=== PATIENT | female | born 1960 | race Caucasian/White ===

== ENCOUNTER 2019-07-11 14:09 | Emergency (ER) | payer OTHER, SELFPAY ==
--- NOTE | ~2019-07-11 | US_ITS ---
EXAMINATION:US venous doppler LE LT INDICATION:Flank pain TECHNIQUE: Multiple grayscale, color flow and Doppler images of the left lower extremity deep venous systems were obtained and reviewed. COMPARISON:No prior studies for comparison. FINDINGS: The common femoral, superficial femoral and popliteal veins demonstrate normal respiratory variation, augmentation and compressibility. Color flow is also seen within the posterior tibial, pe roneal, greater saphenous and profunda veins. IMPRESSION: 1: No lower extremity deep venous thrombosis. Reviewed, dictated and finalized at location A.
[2019-07-11 14:11] VITALS: BP 178/84; PULSE 76; RESP 18; TEMP 36.2; O2SAT 100
--- NOTE | 2019-07-11 14:40 | ED.GENADULT ---
HPI - General Adult General Chief complaint: Extremity Injury, Lower Stated complaint: left leg pain Time Seen by Provider: 07/11/19 14:11 Source: patient Mode of arrival: ambulatory Limitations: no limitations History of Present Illness HPI narrative: Patient is a 58-year-old female who presents to emergency department for evaluation of left leg pain noting pain to the left calf just below the knee for the last day presents for advice of her primary care doctor to rule out DVT patient on arrival notes aching pain worse with weightbearing and activity patient denies any injury or trauma. Patient denies similar occurrence in the past presents per private vehicle has not taken anything for her symptoms Related Data Home Medications Medication Instructions Recorded Confirmed atorvastatin 40 mg PO HS 07/11/19 diclofenac sodium [Voltaren] 1 % TOPICAL 07/11/19 levothyroxine 150 mcg PO DAILY 07/11/19 losartan 25 mg PO DAILY 07/11/19 metformin 1,000 mg PO BID 07/11/19 Allergies Allergy/AdvReac Type Severity Reaction Status Date / Time codeine Allergy Mild knocks pt Verified 07/11/19 14:17 out penicillin G Allergy Mild hives Verified 07/11/19 14:17 Sulfa (Sulfonamide Allergy Mild hives Verified 07/11/19 14:17 Antibiotics) z-pac Allergy Mild stomach Uncoded 07/11/19 14:17 cramps Review of Systems Review of Systems: All systems reviewed & are unremarkable except as noted in HPI and below PMFSH Past Medical History Medical History (Updated 07/11/19 @ 15:16 by Kashif Hicks PA-C) Diabetes mellitus Social History Social History (Updated 07/11/19 @ 14:42 by Kashif Hicks PA-C) Smoking status: Never smoker Exam Narrative: Exam Narrative: GENERAL: Well-appearing, well-nourished, and in no acute distress. HEAD: Normocephalic, atraumatic. EYES: PERRLA and EOMI. ENT: Nares clear, no rhinorrhea or epistaxis. Mucous membranes moist. CHEST: Clear to auscultation. No respiratory distress. No wheezes rales or rhonchi HEART: Regular rate and rhythm. No murmur heard. Normal peripheral pulses. EXTREMITIES: Normal range of motion. No edema. Tenderness of the left leg just below the knee posteriorly no deformities noted SKIN: Warm, dry, no rash. NEURO: No focal deficits. Alert and oriented x3. PSYCH: Normal mood and affect. Course Course Emergency Course: Patient in the room in no distress aware of case findings treatment plan and diagnosis agreeing to follow-up as directed Vital Signs Vital signs: Vital Signs Temperature 97.2 F L 07/11/19 14:11 Pulse Rate 76 07/11/19 14:11 Respiratory Rate 18 07/11/19 14:11 Blood Pressure 178/84 H 07/11/19 14:11 Pulse Oximetry 100 07/11/19 14:11 Temperature 97.2 F L 07/11/19 14:11 Pulse Rate 76 07/11/19 14:11 Respiratory Rate 18 07/11/19 14:11 Blood Pressure 178/84 H 07/11/19 14:11 Pulse Oximetry 100 07/11/19 14:11 Medical Decision Making MDM Narrative Medical decision making narrative: Patients injury or pain is consistent with musculoskeletal etiology. No signs of neurological or vascular compromise on exam. Compartments and tisues are soft without signs of compartment syndrome. Pain is felt appropriate for further evaluation on an outpatient basis. Vital Signs Vital Signs: Vital Signs Temperature 97.2 F L 07/11/19 14:11 Pulse Rate 76 07/11/19 14:11 Respiratory Rate 18 07/11/19 14:11 Blood Pressure 178/84 H 07/11/19 14:11 Pulse Oximetry 100 07/11/19 14:11 Temperature 97.2 F L 07/11/19 14:11 Pulse Rate 76 07/11/19 14:11 Respiratory Rate 18 07/11/19 14:11 Blood Pressure 178/84 H 07/11/19 14:11 Pulse Oximetry 100 07/11/19 14:11 Imaging Data Radiologist's impression: ITS Impressions Venous Doppler Study 07/11/19 15:01 IMPRESSION: 1: No lower extremity deep venous thrombosis. Discharge Plan Discharge Clinical Impression: Left leg pain Patient Di
== END 2019-07-11 15:41 | disposition home or self-care (01) ==
LOC: ANHED 15:34
PROVIDERS: Emergency Provider Emergency Medicine
DX: M79.662 Pain in left lower leg (principal); E11.9 Type 2 diabetes mellitus without complications; Z79.84 Long term (current) use of oral hypoglycemic drugs
CPT/HCPCS: 93971; 99284

== ENCOUNTER 2022-02-27 17:23 | Emergency (ER) | payer BC, SELFPAY ==
--- NOTE | ~2022-02-27 | XR_ITS ---
EXAMINATION: XR knee RT 3V DATE: 02/27/2022 18:26 INDICATION: Right knee pain. TECHNIQUE: 3 views of right knee were obtained. COMPARISON: None. FINDINGS: Bone alignment is normal. No fracture. There is mild tricompartmental osteoarthritis. No kn ee joint effusion. IMPRESSION: 1. Mild right knee osteoarthritis. Reviewed, dictated and finalized at location A. E HANDLING TECHNICIAN
[2022-02-27 17:35] VITALS: BP 152/72; PULSE 60; RESP 16; TEMP 36.4; O2SAT 98
--- NOTE | 2022-02-27 18:05 | ED.GENADULT ---
HPI - General Adult General Chief complaint: Extremity Injury, Lower Stated complaint: rt knee injury Source: patient Mode of arrival: ambulatory Limitations: no limitations History of Present Illness HPI narrative: Patient presents for evaluation of right knee pain. She indicates approximately 6 months ago she experienced some pain in the anterolateral aspect of the right knee. She cannot identify any precipitating injury. She saw her primary provider told her that she probably strained something per her reports. Her pain did improve. Yesterday she was stretching in bed when she felt a pop in her right knee. She has noted persistent pain in the affected joint since that time. At rest sh she has a dull aching sensation rated 3/10 severity. With movement, weight-bearing and walking her pain increases to 8/10. She reports numbness in the affected area. She tried taking 600 mg of ibuprofen without considerable improvement in her symptoms or after. She is diabetic. Home BS are in 200-300's. Related Data Home Medications Medication Instructions Recorded Confirmed atorvastatin 40 mg tablet 40 mg PO HS 07/11/19 02/27/22 levothyroxine 150 mcg tablet 150 mcg PO DAILY 07/11/19 02/27/22 losartan 25 mg tablet 25 mg PO DAILY 07/11/19 02/27/22 metformin 1,000 mg tablet 1,000 mg PO BID 07/11/19 02/27/22 glipizide 10 mg tablet, extended 10 mg PO DIRECTED 02/27/22 02/27/22 release 24 hr insulin glargine-yfgn 100 unit/mL See Rx Instructions .Route .COMPLEX 02/27/22 02/27/22 (3 mL) subcutaneous pen Allergies Allergy/AdvReac Type Severity Reaction Status Date / Time codeine Allergy Mild knocks pt Verified 02/27/22 17:42 out penicillin G Allergy Mild hives Verified 02/27/22 17:42 Sulfa (Sulfonamide Allergy Mild hives Verified 02/27/22 17:42 Antibiotics) azithromycin Allergy Itching Verified 02/27/22 17:42 [From Zithromax Z-Sonny] Review of Systems Review of Systems: CONSTITUTIONAL: Denies fever, chills, or sweats. EYES: Denies visual changes, redness, or discharge. ENT: Denies rhinorrhea, congestion, sore throat, or otalgia. CARDIOVASCULAR: Denies chest pain, palpitations, or edema. RESPIRATORY: Denies cough or dyspnea. GASTROINTESTINAL: Denies abdominal pain, nausea, vomiting, or diarrhea. GENITOURINARY: Denies dysuria or hematuria. SKIN: Denies rash or itching. MUSCULOSKELETAL: Reports right knee pain. Denies joint pain otherwise. NEUROLOGIC: Denies headache, numbness, dizziness, or weakness. PSYCHIATRIC: Denies anxiety or depression. [facility] Past Medical History Medical History (Updated 02/27/22 @ 18:43 by SHERIF Garcia, ) Diabetes mellitus History of esophageal dilatation Hyperlipidemia Hypertension Surgical History Surgical History History of cholecystectomy History of dilatation and curettage Family History Family History Mother Family history non-contributory Social History Social History Alcohol intake: current Alcohol use details: occasional Gender identity (if verbalized by the patient): Female Spiritual care concerns: No Exam Narrative: GENERAL: Well-appearing, well-nourished, and in no acute distress. HEAD: Normocephalic, atraumatic. EYES: PERRLA and EOMI. ENT: Nares clear, no rhinorrhea or epistaxis. Mucous membranes moist. Oropharynx without tonsillar hypertrophy exudate or other lesions. Bilateral TMs pearly ridley nonbulging NECK: Supple. No adenopathy or masses. No carotid bruits or JVD CHEST: Clear to auscultation. No respiratory distress. No wheezes rales or rhonchi HEART: Regular rate and rhythm. No murmur heard. Normal peripheral pulses. ABDOMEN: Soft, nontender, nondistended, normal active bowel sounds. EXTREMITIES: full range of motion of the right knee bu
[2022-02-27] MEDS: KETOROLAC (*BKC) 60 MG/2 ML VIAL IM (18:14)
== END 2022-02-27 18:51 | disposition home or self-care (01) ==
PROVIDERS: Emergency Provider Nurse Practitioner
DX: S86.911A Strain of unspecified muscle(s) and tendon(s) at lower leg level, right leg, initial encounter (principal); X50.9XXA Other and unspecified overexertion or strenuous movements or postures, initial encounter; E11.9 Type 2 diabetes mellitus without complications; E78.5 Hyperlipidemia, unspecified; I10 Essential (primary) hypertension
CPT/HCPCS: 73562; 96372; 99213; G0463; J1885

== ENCOUNTER 2022-06-03 14:01 | Emergency (ER) | payer BC, SELFPAY ==
--- NOTE | ~2022-06-03 | XR_ITS ---
EXAMINATION: XR hand RT min 3V INDICATION: Right hand pain TECHNIQUE: Three views of the right hand are obtained. COMPARISON: None available FINDINGS: Bone alignment is normal. There is no fracture. There is mild osteoarthritis of multiple in terphalangeal joints. IMPRESSION: 1. No acute osseous abnormality. Reviewed, dictated and finalized at location A.
--- NOTE | 2022-06-03 14:15 | ED.UPPEXIN ---
HPI - Extremity Injury (Upper) General Chief Complaint: Extremity Injury, Upper Stated Complaint: rt hand pain Time Seen by Provider: 06/03/22 14:04 Source: patient Mode of arrival: ambulatory Limitations: no limitations History of Present Illness HPI narrative: Patient is a 61 year old female that presents with right wrist/hand pain after fall 2 days ago. Patient fell on outstretched hand and has been having pain since. Patient reports bruising to area that keeps spreading causing her concern. Reports using ice, but has not taken anything for pain. Denies any weakness, numbness or tingling. Reports she is still able to move wrist and hand fully. Related Data Home Medications Medication Instructions Recorded Confirmed atorvastatin 40 mg tablet 40 mg PO HS 07/11/19 06/03/22 levothyroxine 150 mcg tablet 150 mcg PO DAILY 07/11/19 06/03/22 losartan 25 mg tablet 25 mg PO DAILY 07/11/19 06/03/22 metformin 1,000 mg tablet 1,000 mg PO BID 07/11/19 06/03/22 glipizide 10 mg tablet, extended 10 mg PO DIRECTED 02/27/22 06/03/22 release 24 hr insulin glargine-yfgn 100 unit/mL See Rx Instructions .Route .COMPLEX 02/27/22 06/03/22 (3 mL) subcutaneous pen Allergies Allergy/AdvReac Type Severity Reaction Status Date / Time codeine Allergy Mild knocks pt Verified 06/03/22 14:07 out penicillin G Allergy Mild hives Verified 06/03/22 14:07 Sulfa (Sulfonamide Allergy Mild hives Verified 06/03/22 14:07 Antibiotics) azithromycin Allergy Itching Verified 06/03/22 14:07 [From Zithromax Z-Sonny] Review of Systems Review of Systems: All systems reviewed & are unremarkable except as noted in HPI and below Constitutional: Constitutional: Denies body ache(s), Denies fever(s), Denies headache(s), Denies malaise and Denies weakness Eyes: Eyes: Denies loss of vision ENT: Denies otalgia, Denies headache(s), Denies nasal discharge, Denies sinus pain and Denies sore throat Cardiovascular: Cardiovascular: Denies chest pain, Denies irregular heart rhythm and Denies dyspnea Respiratory: Respiratory: Denies dyspnea Gastrointestinal: Gastrointestinal: Denies abdominal pain, Denies diarrhea, Denies nausea and Denies vomiting Musculoskeletal: Musculoskeletal: Denies back pain, Denies myalgias and Reports arthralgias Integumentary/Breasts: Skin/Breast: Denies pruritus and Denies rash Neurologic: Denies headache(s), Denies loss of vision and Denies weakness Psychiatric: Psychiatric: Reports no additional psychiatric complaints PMF Past Medical History Medical History (Updated 06/03/22 @ 14:33 by Tennille Lucas, TEXT TRANSCRIBER) Diabetes mellitus History of esophageal dilatation Hyperlipidemia Hypertension Surgical History Surgical History History of cholecystectomy History of dilatation and curettage Family History Family History Mother Family history non-contributory Social History Social History Alcohol intake: current Alcohol use details: occasional Gender identity (if verbalized by the patient): Female Spiritual care concerns: No Comments At time of signature, agree with nursing past medical, surgical, social and family history. There is no relevant family history pertinent to the presenting complaint. Exam Const: General: cooperative, healthy appearing, comfortable, no acute distress and well nourished Nutritional Appearance: well nourished Orientation/consciousness: patient oriented x3 Limitations: no limitations HENMT: Head: normal to inspection, normocephalic and atraumatic Ears: external ears normal Face/Nose/Sinus: Normal external nose present, normal facial exam and face symmetric Face and sinus: normal facial exam and face symmetric Mouth: Yes lip normal Eyes: General: appearance normal, both eyes and all related
[2022-06-03 14:19] VITALS: BP 134/77; PULSE 71; RESP 16; TEMP 36.6; O2SAT 99
== END 2022-06-03 14:37 | disposition home or self-care (01) ==
PROVIDERS: Emergency Provider Nurse Practitioner Family
DX: S63.501A Unspecified sprain of right wrist, initial encounter (principal); S66.911A Strain of unspecified muscle, fascia and tendon at wrist and hand level, right hand, initial encounter; W19.XXXA Unspecified fall, initial encounter; E11.9 Type 2 diabetes mellitus without complications; E78.5 Hyperlipidemia, unspecified; I10 Essential (primary) hypertension
CPT/HCPCS: 73130; 99213; G0463

== ENCOUNTER 2024-08-02 12:53 | Inpatient (IN) | payer OTHER, SELFPAY ==
[2024-08-02] VITALS (22 sets, daily range): BP systolic 120–192; BP diastolic 51–113; PULSE 58–74; RESP 11–26; TEMP 36.3–36.7; O2SAT 98–100; BMI 36.3
--- NOTE | ~2024-08-02 | CT_ITS ---
Non-contrast Head CT History: CVA Technique: Axial non-contrast imaging of the brain was performed. Dose reduction technique was used on this scan by utilizing automated exposure control and iterative reconstruction technique. The dose -length product (DLP) was 681.00 mGy-cm. Findings: There is no evidence of intracranial hemorrhage, mass lesion, or acute infarct. Brain par enchyma appears normal. The ventricles and subarachnoid spaces are normal in size. The calvarium ap pears normal. The visualized paranasal sinuses and mastoid air cells are clear. Impression: No significant abnormality seen. Case discussed with Dr. Ramos at 1:22 PM on 08/02/2024. Reviewed, dictated and finalized at location . Impression: No significant abnormality seen. Case discussed with Dr. Ramos at 1:22 PM on 08/02/2024.
--- NOTE | ~2024-08-02 | CT_ITS ---
CT ANGIOGRAM NECK AND HEAD History: CVA. Technique: Serial spiral axial images through the head and neck were obtained during arterial phase I V injection of 100 cc of Omnipaque 350. 3-D postprocessing and MIP images were then reconstructed on the remote workstation. Dose reduction technique was used on this scan by utilizing automated exposur e control and iterative reconstruction technique. The dose-length product (DLP) was 1152.04 mGy-cm. CTA neck findings: Bilateral vertebral arteries appear patent. Bilateral common carotid, internal ca rotid, and external carotid arteries are patent. No large vessel occlusion or stenosis. No aneurysm. The proximal right internal carotid artery demonstrates 0% stenosis relative to the normal distal art brooks lumen diameter. The proximal left internal carotid artery demonstrates 0% stenosis relative to th e normal distal artery lumen diameter. CTA head findings: Distal vertebral arteries, basilar artery, and posterior cerebral arteries are pat ent. Distal internal carotid arteries, middle cerebral arteries, and anterior cerebral arteries are p atent. No large vessel occlusion or stenosis. No aneurysm. Impression: No significant abnormality seen. Reviewed, dictated and finalized at location . Impression: No significant abnormality seen.
--- NOTE | ~2024-08-02 | XR_ITS ---
Portable chest x-ray Comparison: 07/20/2013 Clinical History: CVA Findings: Lungs are clear, without focal consolidation or pleural effusion. Cardiomediastinal silho uette is stable. Bones and soft tissues are unremarkable. Impression: Clear lungs. Reviewed, dictated and finalized at location . Impression: Clear lungs.
--- NOTE | ~2024-08-02 | MR_ITS ---
EXAMINATION: MR brain/brain stem wo/w con DATE: 08/03/2024 10:52 INDICATION: Stroke TECHNIQUE: Magnetic resonance imaging (MRI) of the brain and brainstem was performed without and with 20 mL Multihance intravenous contrast. Sequences included sagittal and axial T1-weighted SE, axial d iffusion-weighted FS SE, axial T2*-weighted GRE, axial T2-weighted FLAIR, and axial T2-weighted FSE. Postcontrast axial and coronal T1-weighted SE was obtained. Apparent diffusion coefficient (ADC) maps were created. COMPARISON: Head CT and CT angiogram dated 08/02/2024 FINDINGS: There are no areas of restricted diffusion to suggest acute infarction. No intracranial hemorrhage or abnormal intracranial mass lesion. There are scattered areas of nonspecific increased T2-weighted si gnal intensity in the cerebral white matter, predominantly involving the deep and periventricular whi te matter which is within normal limits for age and likely sequela of chronic small vessel ischemic d isease. There are no intraparenchymal signal abnormalities seen on the other pulse sequences. Symmetr ic prominence of the sulci and and subarachnoid spaces overlying the convexities consistent with mild age-appropriate diffuse cerebral volume loss. The ventricles are symmetric and normal in size. Ther e are no abnormal extra-axial fluid collections. Flow voids are seen in the cerebral arteries on the T2-weighted sequences consistent with their expected patency. Changes of bilateral intraocular lens r eplacement. Visualized orbits and soft tissues are unremarkable. There are no areas of abnormal enhan cement on the post contrast images. IMPRESSION: 1. Normal aging brain. No acute intracranial process. Reviewed, dictated and finalized at location A.
[2024-08-02] MEDS: DEXTROSE 50% 25 GM/50 ML SYRINGE ×2 (13:00→16:09)
--- NOTE | 2024-08-02 13:06 | ECG_ITS ---
Test Date: 2024-08-02 12:53:39 Measurements Intervals [place] Rate: 60 P: 35 OH: 145 QRS: 29 QRSD: 79 T: 42 QT: 389 QTc: 391 Interpretive Statements SINUS RHYTHM BASELINE ARTIFACT- I, II, III, AVR, AVL, AVF, V1-V6 NORMAL ECG No previous ECG available for comparison Electronically Signed On 08-03-2024 11:45:36 CDT by Aries Dao D.O.
--- NOTE | 2024-08-02 13:24 | PC.NURSE ---
12:57 BG 68. 13:00 RN gave patient dextrose via IV. 13:[address] 13:20 Patient transferred to X-ray. 13:24 BG 156.
--- NOTE | 2024-08-02 13:40 | ED.NEUROSD ---
HPI - Neuro Symptoms/Deficit General Chief Complaint: Suspected CVA Stated Complaint: unknown Time Seen by Provider: 08/02/24 13:08 History of Present Illness HPI Narrative: This is a 63-year-old female with history of hypertension, diabetes and high cholesterol presenting for possible stroke. Patient was sitting in synagogue when she developed a frontal headache. She then developed numbness and tingling on the left side of her body. She then called an ambulance and came to the ER for further evaluation. Related Data Home Medications ?Medication ?Instructions ?Recorded ?Confirmed ?Last Taken ?Type atorvastatin 40 mg tablet 40 mg PO HS 07/11/19 06/03/22 Unknown History levothyroxine 150 mcg tablet 150 mcg PO DAILY 07/11/19 06/03/22 Unknown History losartan 25 mg tablet 25 mg PO DAILY 07/11/19 06/03/22 Unknown History metformin 1,000 mg tablet 1,000 mg PO BID 07/11/19 06/03/22 Unknown History glipizide 10 mg tablet, extended 10 mg PO DIRECTED 02/27/22 06/03/22 Unknown History release 24 hr insulin glargine-yfgn 100 unit/mL See Rx Instructions .Route .COMPLEX 02/27/22 06/03/22 Unknown History (3 mL) subcutaneous pen Allergies Allergy/AdvReac Type Severity Reaction Status Date / Time codeine Allergy Mild knocks pt Verified 06/25/24 15:57 out penicillin G Allergy Mild hives Verified 06/25/24 15:57 Sulfa (Sulfonamide Allergy Mild hives Verified 06/25/24 15:57 Antibiotics) azithromycin (From Zithromax Allergy Itching Verified 06/25/24 15:57 Z-Sonny) FOR[facility], [facility] Past Medical History Medical History (Updated 08/02/24 @ 15:27 by Aly Ramos MD) History of esophageal dilatation Hyperlipidemia Hypertension Diabetes mellitus Surgical History Surgical History History of cholecystectomy History of dilatation and curettage Family History Family History Mother Family history non-contributory Social History Social History (System 06/25/24 @ 15:57 by Edgardo Wells) Alcohol intake: current Alcohol use details: occasional Gender identity (if verbalized by the patient): Female Spiritual care concerns: No Exam Narrative: APPEARANCE: No apparent distress. Head: atraumatic. EYES: EOMI, NOSE: Atraumatic NECK: Trachea midline RESPIRATORY: No increased rate of breathing clear to auscultation CARDIOVASCULAR: RRR, no peripheral edema ABDOMINAL: Non-distended soft nontender MUSCULOSKELETAl: No obvious deformities NEURO: Alert. Decreased sensation over the left face left arm and left leg. Left leg drift. Otherwise normal neuro exam. SKIN:: Warm, dry. Normal color PSYCHIATRIC: Normal affect NIH Stroke Scale/Score (NIHSS) from [employer] on 08/02/2024 All calculations should be rechecked by clinician prior to use RESULT SUMMARY: 3 points NIH Stroke Scale INPUTS: 1A: Level of consciousness ?> 1 = Arouses to minor stimulation 1B: Ask month and age ?> 0 = Both questions right 1C: 'Blink eyes' & 'squeeze hands' ?> 0 = Performs both tasks 2: Horizontal extraocular movements ?> 0 = Normal 3: Visual dowd ?> 0 = No visual loss 4: Facial palsy ?> 0 = Normal symmetry 5A: Left arm motor drift ?> 0 = No drift for 10 seconds 5B: Right arm motor drift ?> 0 = No drift for 10 seconds 6A: Left leg motor drift ?> 1 = Drift, but doesn't hit bed 6B: Right leg motor drift ?> 0 = No drift for 5 seconds 7: Limb Ataxia ?> 0 = No ataxia 8: Sensation ?> 1 = Mild-moderate loss: less sharp/more dull 9: Language/aphasia ?> 0 = Normal; no aphasia 10: Dysarthria ?> 0 = Normal 11: Extinction/inattention ?> 0 = No abnormality Course Vital Signs Vital signs: Vital Signs Temperature 98.0 F 08/02/24 13:29 Pulse Rate 74 08/02/24 13:29 Respiratory Rate 14 08/02/24 13:29 Pulse Oximetry 100 08/02/24 13:29 Oxygen Delivery Room Air 08/02/24 13:29 Temperature 98.0 F 08/02/24 13:29 Pulse Rate 74 08/02/24 13:29 Respiratory Rate 14 08/02/24 13:29 Pulse Oximetry 100 08/02/24 13:29 Oxygen Delivery Room Air 08/02/24 13:29 MDM - Neuro Symptoms/Deficit MDM Narrative Medical decision making narrative: -Course: 63-year-old female presenting as a stroke alert. Symptoms include decreased level consciousness requiring minor stimulation, decreased sensation left side of her body and left leg drift. Initial blood glucose was 68. She was given an amp of D50 with improvement to 158. Neurologic symptoms have persisted despite correction of her blood sugar. NIH of 3. LKN: Noon today. CT brain and CTA unremarkable. TPA was discussed with the patient and she is not a candidate due to low NIH, patient preference, and unclear diagnosis. Case was discussed w/ Dr. Platt. Patient will be admitted for further management. -DDX includes but is not limited to: Persistent deficits from hypoglycemia, CVA, complex migraine -Co-morbidities complicating care: Hypertension, diabetes, hyperlipidemia Discharge Plan Discharge Clinical Impression: Left leg weakness, Left sided numbness Patient Disposition: Still a Patient Condition: Stable Patient Language: Moroccan Prescriptions: No Action glipizide 10 mg tablet extended release 24hr 10 mg PO DIRECTED insulin glargine-yfgn 100 unit/mL (3 mL) insulin pen See Rx Instructions .ROUTE .COMPLEX Rx Instructions: use pmd instructs atorvastatin 40 mg Tablet 40 mg PO HS metformin 1,000 mg Tablet 1,000 mg PO BID levothyroxine 150 mcg Tablet 150 mcg PO DAILY losartan 25 mg Tablet 25 mg PO DAILY Follow-up/Referrals: UNKNOWN,DOCTOR [Primary Care Provider] -
[2024-08-02 13:41] LABS: Glucose Point of Care 156 mg/dl (65-105)
[2024-08-02 13:49] LABS: Basophils Percent Auto 0.6 % (0.2-1.2); Eosinophils Absolute Auto 0.1 K/mm3 (0-0.3); Eosinophils Percent Auto 1.8 % (0-4.4); Hematocrit 39.8 % (37.0-47.0); Hemoglobin 13.2 g/dL (12.0-15.0); Immature Granulocyte Absolute 0.03 K/mm3 (0.00-0.031); Immature Granulocyte Percent A 0.4 % (0-0.5); Lymphocytes Absolute Auto 1.52 K/mm3 (0.9-3.2); Lymphocytes Percent Auto 22.5 % (18.3-44.2); Mean Corpuscular HGB Conc 33.2 g/dl (32-36); Mean Corpuscular Hemoglobin 29.1 pg (26-34); Mean Corpuscular Volume 87.7 fl (80-100); Monocytes Absolute Auto 0.4 K/mm3 (0.1-0.6); Monocytes Percent Auto 6.1 % (2.6-8.5); Neutrophils Absolute Auto 4.6 K/mm3 (1.3-6.7); Neutrophils Percent Auto 68.6 % (45.5-73.1); Platelet Count Result 234 k/mm3 (150-375); Red Blood Count 4.54 M/mm3 (4.2-5.4); Red Cell Distribution Width 13.2 % (11.5-14.5); White Blood Count 6.8 K/mm3 (4.5-10.0)
[2024-08-02 13:56] LABS: Glucose Point of Care 68 mg/dl (65-105)
[2024-08-02 13:58] LABS: Alanine Aminotransferase 32 U/L (6-35); Albumin Level 4.1 g/dL (3.5-5.1); Alkaline Phosphatase 85 U/L (38-126); Anion Gap 10 mmol/L (4-12); Aspartate Amino Transferase 30 U/L (14-36); Blood Urea Nitrogen 18 mg/dL (7-17); Calcium 9.8 mg/dL (8.4-10.2); Carbon Dioxide 24 mmol/L (22-30); Chloride 105 mmol/L (98-107); Estimated Glomerular Filt Rate > 60; Ethanol < 10 mg/dL (<10); Glucose 161 mg/dL (65-110); Potassium 4.2 mmol/L (3.4-5.0); Sodium 139 mmol/L (137-145); Total Protein 6.9 g/dL (6.3-8.2)
[2024-08-02 14:02] LABS: INR 0.9; Prothrombin Time 12.5 Seconds (11.1-14.7)
[2024-08-02 14:03] LABS: Add Urine Microscopic? NO; Appearance Urine Clear (Clear); Bilirubin Urine Negative (Negative); Blood Urine Negative (Negative); Color Urine Yellow (Yellow); Glucose Urine UA Trace mg/dL (Negative); Ketones Urine Negative (Negative); Leukocyte Esterase Ur Negative LEU/UL (Negative); Nitrate Urine Negative (Negative); Protein Urine Negative (Negative); Specific Grav Ur 1.042 (1.001-1.035)
[2024-08-02 14:03] LABS: Partial Thromboplastin Time 30.9 Seconds (22.3-36.8)
[2024-08-02 14:09] LABS: Troponin I < 0.012 ng/mL (0.000-0.034)
[2024-08-02 14:18] LABS: Amphetamine Screen Urine Negative (Negative); Barbiturate Screen Urine Negative (Negative); Benzodiazepines Screen Urine Negative (Negative); Cannabinoid Screen Urine Negative (Negative); Cocaine Screen Urine Negative (Negative); Methadone Screen Urine Negative (Negative); Opiate Screen Urine Negative (Negative); Phencyclidine Screen Urine Negative (Negative)
--- NOTE | 2024-08-02 14:36 | PC.NURSE ---
BG 94.
[2024-08-02 14:43] LABS: Glucose Point of Care 94 mg/dl (65-105)
--- NOTE | 2024-08-02 15:34 | PM.IMHP ---
H&P: HPI History of Present Illness Date/Time: 08/02/24 15:34 Chief Complaint: Headache, Blurred Vision, Focal Weakness/Numbness Narrative: 63 y/o F with PMH of hypertension, diabetes type 2, hyperlipidemia, and hypothyroidism presents here with stroke-like symptoms. The patient presents here from [facility] via EMS on 08/02 for further evaluation of stroke-like symptoms. She reports her last known well was at 0800 on 08/02. She reports onset of symptoms at 9:00 a.m. today (08/02). She reports she initially developed a frontal headache and blurred vision to her bilateral eyes. She reports she was drinking [employer] at the time and did not think her sugar was low at the time and her dexcom did not alert her to hypoglycemia, however she had not eaten at that point. She then proceeded to go to [facility], during the service she reports she developed left arm weakness and numbness which then spread to her face around 12:00 p.m.. Upon arrival to the emergency department, the provider reported decreased level of consciousness requiring minor stimulation, decreased sensation to the left side of her body including her (face, left arm, left leg), and a left lower extremity drift. Her initial glucose was 68, given D50 with repeat glucose at 156. Focal neurological symptoms did not improve with correction of glucose. She currently reports resolution of her headache and the blurred vision, numbness to the left arm and left face have also resolved. Continues to have weakness and numbness in the LLE. Denies changes in speech, dysphagia (different from her baseline). Last A1c 7.2% around 2 months ago. Initial VS at presentation: 98? F, HR 74, RR 14, 192/87, and 100% on RA. ED workup showed: No leukocytosis, no anemia, normal coags, no significant electrolyte derangements, creatinine 0.87 and GFR >60, glucose 161, initial troponin negative, UA showed a high specific gravity and trace glucose otherwise unremarkable, UDS negative, ETOH negative. Head CT showed no significant abnormalities. CXR showed clear lungs. Head/neck CTA showed no significant abnormality. Review of Systems Review of Systems: All systems reviewed & are unremarkable except as noted in HPI and below PMFSH Past Medical History Medical History (Updated 08/02/24 @ 15:54 by Kayleen Norris APRN) Hypothyroidism Carlin's palsy Hyperlipidemia Hypertension Diabetes mellitus Surgical History Surgical History (Updated 08/02/24 @ 15:47 by Kayleen Norris APRN) History of nasal septoplasty History of tonsillectomy History of surgical removal of ganglion cyst History of umbilical hernia repair History of esophageal dilatation History of cholecystectomy History of dilatation and curettage Family History Family History (Updated 08/02/24 @ 18:03 by Maricarmen Isaacs RN) Mother Family history non-contributory Dementia Father Cerebrovascular accident Cancer Social History Social History Smoking status: Never smoker Alcohol intake: never Alcohol use details: occasional Substance use: never Do You Feel Safe in your Home?: Yes Lack of Transportation: No Lack of Food: Never True Current Housing: I Have Housing Concerned About Future Housing: No Difficulty Paying Gas/Electric Bills: No Difficulty Paying for Meds: No Currently Unemployed: No Education: Decline to Answer Difficulty w/ Childcare or Family Care: No Gender identity (if verbalized by the patient): Female Spiritual care concerns: No Meds Home Medications and Allergies Home Medications ?Medication ?Instructions ?Recorded ?Confirmed ?Type atorvastatin 40 mg tablet 40 mg PO HS 07/11/19 08/02/24 History levothyroxine 150 mcg tablet 150 mcg PO DAILY 07/11/19 08/02/24 History losartan 25 mg tablet 25 mg PO DAILY 07/11/19 08/02/24 History metformin 1,000 mg tablet 1,000 mg PO BID 07/11/19 08/02/24 History glipizide 10 mg tablet, extended 10 mg PO BID 02/27/22 08/02/24 History release 24 hr insulin glargine-yfgn 100 unit/mL See Rx Instructions .Route .COMPLEX 02/27/22 08/02/24 History (3 mL) subcutaneous pen B12 08/02/24 History amlodipine 10 mg tablet 10 mg PO DAILY 08/02/24 08/02/24 History dulaglutide 0.75 mg/0.5 mL 1.5 mg subcut WEEKLY 08/02/24 08/02/24 History subcutaneous pen injector (Trulicity) gabapentin 300 mg capsule 300 mg PO HS 08/02/24 08/02/24 History hydrochlorothiazide 25 mg tablet 25 mg PO DAILY 08/02/24 08/02/24 History levetiracetam 1,000 mg tablet 1,000 mg PO BID 08/02/24 08/02/24 History losartan 100 mg tablet 100 mg PO DAILY 08/02/24 08/02/24 History metoprolol succinate 50 mg 50 mg PO DAILY 08/02/24 08/02/24 History tablet,extended release 24 hr pantoprazole 40 mg tablet,delayed 40 mg PO .AM 08/02/24 08/02/24 History release Allergies Allergy/AdvReac Type Severity Reaction Status Date / Time codeine Allergy Mild knocks pt Verified 08/02/24 18:04 out penicillin G Allergy Mild hives Verified 08/02/24 18:04 Sulfa (Sulfonamide Allergy Mild hives Verified 08/02/24 18:04 Antibiotics) azithromycin (From Zithromax Allergy Itching Verified 08/02/24 18:04 Z-Sonny) coconut Allergy Swelling Verified 08/02/24 18:04 Vital Signs Vital Signs - 24 hr 08/02/24 13:29 08/02/24 13:41 08/02/24 13:47 Temperature 98.0 F 98.0 F Pulse Rate 74 71 63 Respiratory Rate 14 26 H 14 Blood Pressure 192/87 H 181/79 H Pulse Oximetry 100 100 100 Oxygen Delivery Room Air 08/02/24 14:02 08/02/24 14:17 08/02/24 14:30 Temperature Pulse Rate 63 66 58 L Respiratory Rate 11 L 12 11 L Blood Pressure 173/87 H 181/91 H Pulse Oximetry 100 100 100 Oxygen Delivery 08/02/24 14:33 08/02/24 14:36 Temperature Pulse Rate 59 L Respiratory Rate 11 L Blood Pressure Pulse Oximetry 100 100 Oxygen Delivery Exam Const: General: comfortable and no acute distress Other: , female, nontoxic appearance HENMT: Face/Nose/Sinus: Normal nares present Mouth: Yes moist mucous membranes Eyes: General: appearance normal, both eyes and all related structures Sclera: sclerae normal Pupils: Equal, round and reactive pupils present EOM: EOMs intact bilaterally Resp: Effort & Inspection: normal respiratory effort Auscultation: clear to auscultation bilaterally Cardio: Rate: regular rate Rhythm: regular rhythm Other: S1-S2 present without murmur, rub, ectopy GI: Other: Abdomen soft, nondistended, nontender. Normoactive bowel sounds in all quadrants. Skin: General skin exam: normal color and no rashes or lesions noted Wounds: no wounds Neuro: Speech: normal speech Sensory Exam: normal sensation Other: Initial NIHSS 1a: Level of Consciousness 0 1b: LOC Questions 0 1c:?LOC Tasks 0 2:?Best Gaze 0 3:?Visual?López 0 4: Facial Palsy 0 5a: Motor Arm?R 0 5b: Motor Arm L 0 6a:?Motor Leg R 0 6a:?Motor Leg L 1 7: Limb Ataxia 0 8: Sensation 0 9:?Language/Aphasia 0 10:?Dysarthria?0 11: Extinction and Inattention 0 Total 1 A&O x4 Extrem: General: normal to inspection Psych: Mental Status: mental status grossly normal Affect: normal affect Other: Good insight and judgment, pleasant H&P: Results Labs Labs: Short CBC 08/02/24 Range/Units 13:42 WBC 6.8 (4.5-10.0) K/mm3 Hgb 13.2 (12.0-15.0) g/dL Hct 39.8 (37.0-47.0) % Plt Count 234 (150-375) k/mm3 BMP 08/02/24 13:42 Sodium 139 Potassium 4.2 Chloride 105 Carbon Dioxide 24 BUN 18 H Creatinine 0.87 Glucose 161 H Calcium 9.8 Cardiac Enzymes 08/02/24 08/02/24 Range/Units 13:42 13:42 Troponin I < 0.012 Cancelled (0.000-0.034) ng/mL Liver Function 08/02/24 Range/Units 13:42 Total Bilirubin 1.0 (0.2-1.3) mg/dL AST 30 (14-36) U/L ALT 32 (6-35) U/L Alkaline Phosphatase 85 (38-126) U/L Albumin 4.1 (3.5-5.1) g/dL Urine 08/02/24 Range/Units 13:56 Urine Color Yellow (Yellow) Urine Appearance Clear (Clear) Urine pH 5.0 (5.0-9.0) Ur Specific Blanchard 1.042 H (1.001-1.035) Urine Protein Negative (Negative) mg/dL Urine Glucose (UA) Trace H (Negative) mg/dL Assessment and Plan Assessment and plan (1) Left sided numbness: Code(s): R20.0 - Anesthesia of skin Status: Acute Assessment and Plan: New deficits of blurred vision, left-sided paresthesias, left lower extremity weakness starting on 622 at 9:00 a.m. Last known well at 8:00 a.m. on 08/02. - admission for observation and telemetry - not candidate for thrombolytics due to low NIHSS, unclear diagnosis, patient preference - not candidate for thrombectomy, no LVO on CTA - CXR: clear lungs - CTA head/neck and head CT (08/02) unremarkable - neurology consulted - brain MRI w/wo ordered - echo w/Bubble ordered - neuro checks Q4 - PT/OT to eval and treat - monitor daily labs, check lipid panel, TSH (hx of hypothyroidism) and A1C - start Plavix 75 mg PO, ASA 81 mg - continue atorvastatin 40 mg daily - consider 30 day event monitoring at discharge (2) Left leg weakness: Code(s): R29.898 - Other symptoms and signs involving the musculoskeletal system Status: Acute Assessment and Plan: - see above (3) Diabetes mellitus: Qualifiers: Diabetes mellitus complication detail: without coma Diabetes mellitus complication status: with hypoglycemia Diabetes mellitus halfway insulin use: without terminal makeup operator use Diabetes mellitus type: type 2 Qualified Code(s): E11.649 - Type 2 diabetes mellitus with hypoglycemia without coma Code(s): E11.9 - Type 2 diabetes mellitus without complications Status: Chronic Assessment and Plan: - initially hypoglycemic at 68 requiring D50, stable since correction. ED provided update at 4:00 p.m., patient hypoglycemic in the upper 40s. Plan to feed patient and correct with D50. Glucose checks exchange from ACHS to Q2 until stable. Patient's glucose continuing to downtrend. Will start D5LR at 75 mL/hr x1L. - hypoglycemia protocol - POC blood glucose ACHS -> Q2H until stable - home medication: Hold metformin, glipizide, glargine, Trulicity (NF). - correct regimen ordered - low dose TIDWM, based off TDD - A1C ordered (4) Hyperlipidemia: Qualifiers: Hyperlipidemia type: unspecified Qualified Code(s): E78.5 - Hyperlipidemia, unspecified Code(s): E78.5 - Hyperlipidemia, unspecified Status: Chronic Assessment and Plan: - continue home medication: Atorvastatin 40 mg daily - checking lipid panel (5) Hypertension: Qualifiers: Hypertension type: primary hypertension Qualified Code(s): I10 - Essential (primary) hypertension Code(s): I10 - Essential (primary) hypertension Status: Chronic Assessment and Plan: - chronic, currently 120/61 - continue home medications: Losartan, hydrochlorothiazide - monitor Plan Diet: Heart healthy GI Prophylaxis: Not currently indicated DVT Prophylaxis: SCDs IV fluids: D5 LR at 75 mL/hour x1 L Lines/Tubes: Peripheral IV Code Status: Full code Quality VTE Prophylaxis VTE prophylaxis: mechanical ordered Hospitalist MIPS Advance Care Plan I have confirmed that the patient's Advanced Care Plan is present, code status is documented, or surrogate decision maker is listed in patient medical record.: Yes Medication Reconciliation I have utilized all available resources to obtain, update and review the patients current medications (includes all prescriptions, OTC, herbals, cannabis, and nutritional supplements).: Yes
--- NOTE | 2024-08-02 16:32 | PC.NURSE ---
BG 153.
[2024-08-02 16:36] LABS: Glucose Point of Care 47 mg/dl (65-105)
[2024-08-02 16:36] LABS: Glucose Point of Care 153 mg/dl (65-105)
--- NOTE | 2024-08-02 16:39 | PC.NURSE ---
Lunch tray ordered for patient.
--- NOTE | 2024-08-02 17:34 | ADMGEN ---
This patient, Nissa Armas, was admitted to 2 Medical Room 257-01. Patient/family oriented to hospital policies and general routines including ID bracelet, bed and alarms, visiting hours, pain management, procedures, bathroom and other care routines, personal items, smoking policy, room service/diet, and visiting hours. Information on how to activate the Rapid Response Team has been discussed. Patient/Family are encouraged to report perceived risks to care and to ask questions if they do not understand what they are told or what they should do.
[2024-08-02] MEDS: DEXTROSE 50% 25 GM/50 ML SYRINGE IV PUSH (20:14)
[2024-08-02 20:17] LABS: Glucose Point of Care 150 mg/dl (65-105)
[2024-08-02 20:44] LABS: Glucose Point of Care 80 mg/dl (65-105)
[2024-08-02 21:52] LABS: Glucose Point of Care 90 mg/dl (65-105)
[2024-08-02] MEDS: DEXTROSE 5%/LACTATED RINGERS 1,000 ML 75 ML IV CONT (22:26)
[2024-08-02] MEDS: PANTOPRAZOLE 40 MG TABLET PO (22:26)
[2024-08-02] MEDS: GABAPENTIN 300 MG CAPSULE PO (22:26)
[2024-08-03] VITALS (10 sets, daily range): BP systolic 124–139; BP diastolic 54–65; PULSE 58–73; RESP 14–20; TEMP 36.2–37.1; O2SAT 97–100
--- NOTE | 2024-08-03 | ECHO_ITS ---
Patient Info Name: Nissa Armas Age: 63 years : 1960 Gender: Female Ht: 66 in Wt: 235 lbs BSA: 2.28 m2 HR: 58 bpm BP: 132 / 64 mmHg Heart Rhythm: Sinus Rhythm Technical Quality: Fair Exam Date: 08/03/2024 12:54 PM Patient Status: I Admit Date: 08/02/2024 Exam Type: CA echo dop bubble study w con Complete two-dimentional, color flow and Doppler transthoracic echocardiogram is performed with agitated saline and with contrast to opacify the left ventricle and to improve the delineation of the left ventricle endocardial borders. Staff Referring Physician: Kayleen Norris Network Mgr: Jaja Limon Attending Provider: Chino Powers Contrast/Agitated Saline Contrast/Ag. Saline: Agitated Saline Amount: 20.00 ml Existing IV Access: Yes IV Access Condition: patent with no signs of infiltration Contrast/Ag. Saline: Definity Amount: 2.00 ml Administered By: Jaja Limon Existing IV Access: Yes IV Access Condition: patent with no signs of infiltration Summary 1. Left ventricular chamber dimension is normal. 2. Left ventricular systolic function is normal, estimated at 65-70. 3. Right ventricular systolic function is normal. 4. Left atrial chamber dimension is mildly enlarged. 5. Intact interatrial septum visualized by color flow and agitated saline imaging. Negative bubble study. 6. There is mild tricuspid valve regurgitation. Left Ventricle Left ventricular chamber dimension is normal. Left ventricular systolic function is normal, estimated at 65-70. There is no increased left ventricular wall thickness. The left ventricular diastolic function is indeterminate. Right Ventricle Right ventricular chamber dimension is normal. Right ventricular systolic function is normal. Left Atria Left atrial chamber dimension is mildly enlarged. Right Atria Right atrial chamber dimension is normal. Atrial Septum Intact interatrial septum visualized by color flow and agitated saline imaging. Negative bubble study. Aortic Valve The aortic valve is probable trileaflet. There is no aortic valve stenosis. There is no aortic valve regurgitation. There is mild aortic valve calcification. Pulmonic Valve The pulmonic valve is not well visualized. There is no pulmonic regurgitation. Mitral Valve There is trace mitral valve regurgitation. Tricuspid Valve There is mild tricuspid valve regurgitation. Pericardium/Pleural There is no pericardial effusion. Inferior Vena Cava Normal inferior vena cava with >50% collapse upon inspiration consistent with normal right atrial pressure, 3 mmHg. Aorta The aortic root size at the sinus of Valsalva is normal. Left Ventricular Outflow Tract Name Value Normal LVOT 2D LVOT Diameter 2.0 cm LVOT Doppler LVOT Peak Velocity 118 cm/s LVOT Peak Gradient 6 mmHg LVOT Mean Gradient 3 mmHg LVOT VTI 26 cm LVOT VTI/AV VTI Ratio 0.8 LVOT Stroke Volume 83 ml LVOT CO 4.6 l/min LVOT CI 2.0 l/min/m2 Pulmonic Valve Name Value Normal RVOT Doppler RVOT Peak Velocity 68 cm/s RVOT Peak Gradient 2 mmHg PV Doppler PV Peak Velocity 86 cm/s PV Peak Gradient 3 mmHg Mitral Valve Name Value Normal MV Diastolic Function MV E Peak Velocity 92 cm/s MV A Peak Velocity 84 cm/s MV E/A 1.1 MV Decel Time (PW) 202 ms MV Annular TDI MV E/e' (Septal) 11.8 MV E/e' (Lateral) 11.2 MV E/e' (Average) 11.5 Tricuspid Valve Name Value Normal TV Regurgitation Doppler TR Peak Velocity 211 cm/s TR Peak Gradient 18 mmHg Estimated PAP/RSVP RA Pressure 3 mmHg <=5 PA Systolic Pressure 21 mmHg <36 RV Systolic Pressure 21 mmHg <36 TV Annular TDI TV Lateral Alejandra s' Velocity 11.6 cm/s >=9.5 Aorta Name Value Normal Ascending Aorta Ao Root Diameter (MM) 2.9 cm Ao Root Diam Index (MM) 1.3 cm/m2 Aortic Valve Name Value Normal AV Doppler AV Peak Velocity 177 cm/s AV Peak Gradient 12 mmHg AV Mean Gradient 6 mmHg AV VTI 33 cm AV Area (Cont Eq VTI) 2.6 cm2 >=3.0 AV Area (Cont Eq Steve) 2.2 cm2 AV DI (Steve) 0.67 AV Regurgitation 2D LVOT Area 3.2 cm2 Ventricles Name Value Normal LV Dimensions 2D/MM IVS Diastolic Thickness (2D) 1.0 cm 0.6-1.0 LVID Diastole (2D) 4.7 cm 3.8-5.2 LVIW Diastolic Thickness (2D) 1.0 cm 0.6-0.9 LVID Systole (2D) 2.6 cm 2.2-3.5 LVOT Diameter 2.0 cm LV Mass (2D Cubed) 163.94 g 67.00-162.00 LV Mass Index (2D Cubed) 72 g/m2 43-95 Relative Wall Thickness (2D) 0.43 <=0.42 LV Fractional Shortening/Ejection Fraction 2D/MM LV Fractional Shortening (2D) 44 % 27-45 LV EF (2D Teichholz) 75 % LV Diastolic Volume (4C MOD) 44 ml LV EF (4C MOD) 65 % LV Diastolic Volume (2C MOD) 65 ml LV EF (2C MOD) 79 % LV Diastolic Volume (BP MOD) 54 ml 46-106 LV Diastolic Volume Index (BP MOD) 24 ml/m2 29-61 LV Systolic Volume (BP MOD) 15 ml 14-42 LV Systolic Volume Index (BP MOD) 7 ml/m2 8-24 LV EF (BP MOD) 72 % 54-74 LV Diastolic Length (4C) 6.5 cm LV Systolic Length (4C) 5.5 cm LV Stroke Volume (4C MOD) 29 ml Atria Name Value Normal LA Dimensions LA Dimension (MM) 4.5 cm 2.7-3.8 LA Volume (4C A-L) 74 ml LA Volume (BP A-L) 68 ml RA Dimensions RA Area (4C) 15.5 cm2 <=18.0 Report Signatures
[2024-08-03 00:38] LABS: Glucose Point of Care 99 mg/dl (65-105)
[2024-08-03 04:37] LABS: Glucose Point of Care 131 mg/dl (65-105)
[2024-08-03 05:15] LABS: Basophils Absolute Auto 0.1 K/mm3 (0.0-0.1); Basophils Percent Auto 0.6 % (0.2-1.2); Eosinophils Absolute Auto 0.1 K/mm3 (0-0.3); Eosinophils Percent Auto 1.4 % (0-4.4); Hematocrit 38.2 % (37.0-47.0); Hemoglobin 12.5 g/dL (12.0-15.0); Immature Granulocyte Absolute 0.02 K/mm3 (0.00-0.031); Immature Granulocyte Percent A 0.3 % (0-0.5); Mean Corpuscular HGB Conc 32.7 g/dl (32-36); Mean Corpuscular Hemoglobin 28.6 pg (26-34); Mean Corpuscular Volume 87.4 fl (80-100); Mean Platelet Volume 10.1 fl (7.4-10.4); Monocytes Absolute Auto 0.6 K/mm3 (0.1-0.6); Monocytes Percent Auto 7.3 % (2.6-8.5); Neutrophils Absolute Auto 5.6 K/mm3 (1.3-6.7); Neutrophils Percent Auto 71.4 % (45.5-73.1); Platelet Count Result 212 k/mm3 (150-375); Red Blood Count 4.37 M/mm3 (4.2-5.4); Red Cell Distribution Width 13.2 % (11.5-14.5); White Blood Count 7.9 K/mm3 (4.5-10.0)
[2024-08-03 05:24] LABS: Hemoglobin A1C 5.6 % (<5.7)
[2024-08-03] MEDS: LEVOTHYROXINE SODIUM 150 MCG TABLET PO (05:43)
[2024-08-03] MEDS: levETIRAcetam 500 MG TABLET 1000 MG PO ×2 (05:43→17:09)
[2024-08-03 05:46] LABS: Alanine Aminotransferase 27 U/L (6-35); Albumin Level 3.6 g/dL (3.5-5.1); Alkaline Phosphatase 62 U/L (38-126); Anion Gap 8 mmol/L (4-12); Aspartate Amino Transferase 26 U/L (14-36); Bilirubin,Total 1.2 mg/dL (0.2-1.3); Blood Urea Nitrogen 16 mg/dL (7-17); Calcium 9.3 mg/dL (8.4-10.2); Carbon Dioxide 23 mmol/L (22-30); Chloride 107 mmol/L (98-107); Cholesterol 82 mg/dL (0-200); Estimated CRCL calculation 69 ml/min; Estimated Glomerular Filt Rate > 60; Glucose 139 mg/dL (65-110); HDL Direct 30 mg/dL; Potassium 3.9 mmol/L (3.4-5.0); Sodium 138 mmol/L (137-145); Total Protein 6.2 g/dL (6.3-8.2); Triglycerides 101 mg/dL (<150)
[2024-08-03 05:57] LABS: LDL Cholesterol Direct < 30 mg/dL
[2024-08-03 06:09] LABS: Thyroid Stimulating Hormone Reflex 0.025 uIU/mL (0.465-4.68)
[2024-08-03 07:00] LABS: Free T4 Free Thyroxine Reflex 1.73 ng/dL (0.78-2.19)
[2024-08-03 08:04] LABS: Glucose Point of Care 138 mg/dl (65-105)
[2024-08-03 08:23] LABS: Magnesium 1.7 mg/dL (1.6-2.3)
[2024-08-03] MEDS: hydroCHLOROthiazide 25 MG TABLET PO (08:40)
[2024-08-03] MEDS: LOSARTAN POTASSIUM 25 MG TABLET PO (08:41)
[2024-08-03] MEDS: ASPIRIN 81 MG ENTERIC TABLET PO (08:41)
[2024-08-03] MEDS: CLOPIDOGREL BISULFATE 75 MG TABLET PO (08:41)
[2024-08-03] MEDS: PANTOPRAZOLE 40 MG TABLET PO (08:41)
--- NOTE | 2024-08-03 08:52 | ECG_ITS ---
Test Date: 2024-08-03 09:17:51 Measurements Intervals Gentry Rate: 65 P: 34 NH: 123 QRS: 14 QRSD: 84 T: 46 QT: 415 QTc: 432 Interpretive Statements SINUS RHYTHM MINIMAL Q WAVES- INFERIOR LEADS BORDERLINE ST-T WAVE ABNORMALITY- HIGH LATERAL LEADS BASELINE ARTIFACT- I, II, AVR, AVL BORDERLINE ECG No previous ECG available for comparison Electronically Signed On 08-03-2024 09:38:08 CDT by Aries Dao D.O.
--- NOTE | 2024-08-03 09:52 | PM.IMPN ---
Progress Note: A&P Assessment and Plan (1) Left sided numbness: Code(s): R20.0 - Anesthesia of skin Status: Acute Assessment and Plan: New deficits of blurred vision, left-sided paresthesias, left lower extremity weakness starting on 08/02 at 9:00 a.m. Last known well at 8:00 a.m. on 08/02. - admission for observation and telemetry - not candidate for thrombolytics due to low NIHSS, unclear diagnosis, patient preference - not candidate for thrombectomy, no LVO on CTA - CXR: clear lungs - CTA head/neck and head CT (08/02) unremarkable - neurology consulted - brain MRI w/wo showed a normal aging brain. No acute intracranial process. - echo w/Bubble ordered - neuro checks Q4 - PT/OT to eval and treat - monitor daily labs, check lipid panel, TSH (hx of hypothyroidism) and A1C - start Plavix 75 mg PO, ASA 81 mg - continue atorvastatin 40 mg daily - consider 30 day event monitoring at discharge - currently only numbness is in bilateral feet. - Trop <0.012. (2) Left leg weakness: Code(s): R29.898 - Other symptoms and signs involving the musculoskeletal system Status: Acute Assessment and Plan: - see above (3) Diabetes mellitus: Qualifiers: Diabetes mellitus type: type 2 Diabetes mellitus [employer] insulin use: without senior living use Diabetes mellitus complication status: with hypoglycemia Diabetes mellitus complication detail: without coma Qualified Code(s): E11.649 - Type 2 diabetes mellitus with hypoglycemia without coma Code(s): E11.9 - Type 2 diabetes mellitus without complications Status: Chronic Assessment and Plan: - initially hypoglycemic at 68 requiring D50, stable since correction. ED provided update at 4:00 p.m., patient hypoglycemic in the upper 40s. Plan to feed patient and correct with D50. Glucose checks exchange from ACHS to Q2 until stable. Patient's glucose continuing to downtrend. Will start D5LR at 75 mL/hr x1L. - hypoglycemia protocol - POC blood glucose ACHS -> Q4H until stable - home medication: Hold metformin, glipizide, glargine, Trulicity (NF). - correct regimen ordered - low dose TIDWM, based off TDD - HgbA1C 5.6%. - Blood sugars today 99-183. Patient completed liter of D5LR. Monitor blood sugars q4. (4) Hyperlipidemia: Qualifiers: Hyperlipidemia type: unspecified Qualified Code(s): E78.5 - Hyperlipidemia, unspecified Code(s): E78.5 - Hyperlipidemia, unspecified Status: Chronic Assessment and Plan: - continue home medication: Atorvastatin 40 mg daily - checking lipid panel (5) Hypertension: Qualifiers: Hypertension type: primary hypertension Qualified Code(s): I10 - Essential (primary) hypertension Code(s): I10 - Essential (primary) hypertension Status: Chronic Assessment and Plan: - chronic, currently 132/65. - continue home medications: Losartan, hydrochlorothiazide - monitor (6) Hypothyroidism: Code(s): E03.9 - Hypothyroidism, unspecified Status: Acute Assessment and Plan: TSH 0.025, free T4 1.73, and Total T3 0.92. Decrease Levothyroxine 137 mcg PO daily. Subjective Date/time seen: 08/03/24 09:52 Interval history: Patient sitting up in chair. Patient reports numbness in the bottoms of both of her feet. Patient denies chest pain, palpitations, headache, dizziness, nausea, or vomiting. Patient reports that she has been having chest pain recently in her left chest into her back, patient reports that she failed a stress test. Patient was supposed to have a cardiac cath today at [facility]. Patient reports that she did have chest pain yesterday that radiated down her left arm and went into her back. Review of Systems Review of Systems: All systems reviewed & are unremarkable except as noted in HPI and below Exam Const: General: comfortable and no acute distress Resp: Effort & Inspection: normal respiratory effort Auscultation: clear to auscultation bilaterally Cardio: Rate: regular rate Rhythm: regular rhythm Other: Telemetry- SR 70. GI: GI Palp: Yes Soft to palpation Auscultation: normal bowel sounds Neuro: Speech: normal speech Extrem: General: no pedal edema Psych: Mental Status: mental status grossly normal Affect: normal affect Objective Data Vital Signs Vital Signs: Vital Signs - 24 hr 08/02/24 13:29 08/02/24 13:41 08/02/24 13:47 Temperature 98.0 F 98.0 F Pulse Rate 74 71 63 Respiratory Rate 14 26 H 14 Blood Pressure 192/87 H 181/79 H Pulse Oximetry 100 100 100 Oxygen Delivery Room Air 08/02/24 14:02 08/02/24 14:17 08/02/24 14:30 Temperature Pulse Rate 63 66 58 L Respiratory Rate 11 L 12 11 L Blood Pressure 173/87 H 181/91 H Pulse Oximetry 100 100 100 Oxygen Delivery 08/02/24 14:33 08/02/24 14:36 08/02/24 14:47 Temperature Pulse Rate 59 L 62 Respiratory Rate 11 L 12 Blood Pressure 125/113 H Pulse Oximetry 100 100 100 Oxygen Delivery 08/02/24 15:01 08/02/24 15:17 08/02/24 15:32 Temperature Pulse Rate 60 62 62 Respiratory Rate 16 13 16 Blood Pressure 150/82 H 159/74 H 164/74 H Pulse Oximetry 100 99 100 Oxygen Delivery 08/02/24 15:47 08/02/24 16:02 08/02/24 16:17 Temperature Pulse Rate 61 64 69 Respiratory Rate 18 19 14 Blood Pressure 173/73 H 162/73 H 166/67 H Pulse Oximetry 100 99 100 Oxygen Delivery 08/02/24 16:32 08/02/24 16:47 08/02/24 17:02 Temperature Pulse Rate 60 66 60 Respiratory Rate 15 17 18 Blood Pressure 165/87 H 164/70 H 140/69 Pulse Oximetry 100 100 100 Oxygen Delivery 08/02/24 17:17 08/02/24 17:37 08/02/24 18:35 Temperature 97.4 F L Pulse Rate 62 61 Respiratory Rate 19 16 Blood Pressure 154/67 H 146/57 H Pulse Oximetry 99 100 Oxygen Delivery Room Air 08/02/24 20:00 08/02/24 20:00 08/02/24 20:00 Temperature 97.5 F L Pulse Rate 62 62 62 Respiratory Rate 18 18 Blood Pressure 120/61 Pulse Oximetry 98 98 Oxygen Delivery Room Air 08/02/24 23:35 08/03/24 00:00 08/03/24 03:38 Temperature 98.1 F 98.7 F Pulse Rate 65 59 L 58 L Respiratory Rate 17 16 Blood Pressure 136/51 L 132/64 Pulse Oximetry 99 97 Oxygen Delivery 08/03/24 04:00 08/03/24 08:12 08/03/24 08:39 Temperature 97.2 F L Pulse Rate 58 L 67 Respiratory Rate 14 Blood Pressure 132/65 Pulse Oximetry 99 Oxygen Delivery Room Air 08/03/24 08:41 08/03/24 08:41 Temperature Pulse Rate 67 62 Respiratory Rate 14 Blood Pressure Pulse Oximetry 99 Oxygen Delivery Room Air Intake/Output Intake/Output: Intake & Output 07/31/24 08/01/24 08/02/24 08/03/24 23:59 23:59 23:59 23:59 Intake Total 120 100 Balance 120 100 Meds/Results Medications: Active Medications Generic Name Dose Route Start Last Admin Trade Name Freq PRN Reason Stop Dose Admin Aspirin 81 mg 08/03/24 09:00 08/03/24 08:41 Aspirin 81 Mg Enteric Tablet PO 81 mg QAM ADENIKE Administration Atorvastatin Calcium 40 mg 08/03/24 21:00 Atorvastatin 40 Mg Tablet PO HS ADENIKE Clopidogrel Bisulfate 75 mg 08/03/24 09:00 08/03/24 08:41 Clopidogrel Bisulfate 75 Mg Tablet PO 75 mg QAM ADENIKE Administration Dextrose 12.5 gm 08/02/24 15:52 08/02/24 20:14 Dextrose 50% 25 Gm/50 Ml Syringe IV PUSH 12.5 gm PRN PRN Administration Hypoglycemia Protocol Gabapentin 300 mg 08/02/24 21:00 08/02/24 22:26 Gabapentin 300 Mg Capsule PO 300 mg HS ADENIKE Administration Glucagon 1 mg 08/02/24 15:52 Glucagon For Inj 1 Mg Vial IM PRN PRN Hypoglycemia Protocol Glucose 15 gm 08/02/24 15:52 Glucose Oral Gel 15 Gm Of Glucse In 37.5 Gm Tube PO PRN PRN Hypoglycemia Protocol Hydrochlorothiazide 25 mg 08/03/24 09:00 08/03/24 08:40 Hydrochlorothiazide 25 Mg Tablet PO 25 mg DAILY ADENIKE Administration Dextrose 1,000 mls @ 100 mls/hr 08/02/24 15:52 Dextrose 5% 1,000 Ml IVPB PRN PRN Hypoglycemia Protocol Dextrose/Lactated Ringer's 1,000 mls @ 75 mls/hr 08/02/24 22:00 08/02/24 22:26 Dextrose 5%/Lactated Ringers IV CONT 08/03/24 11:19 75 mls/hr .[id number] ADENIKE Administration Insulin Aspart 2 - 5 units 08/02/24 17:00 08/03/24 08:38 Insulin Aspart (*Bkc) 100 Units/Ml SUB-Q Not Given TIDWM ADENIKE Protocol Levetiracetam 1,000 mg 08/03/24 06:00 08/03/24 05:43 Levetiracetam 500 Mg Tablet PO 1,000 mg Q12H ADENIKE Administration Levothyroxine Sodium 150 mcg 08/03/24 06:30 08/03/24 05:43 Levothyroxine Sodium 150 Mcg Tablet PO 150 mcg DAILY@0630 ADENIKE Administration Losartan Potassium 25 mg 08/03/24 09:00 08/03/24 08:41 Losartan Potassium 25 Mg Tablet PO 25 mg DAILY ADENIKE Administration Pantoprazole Sodium 40 mg 08/02/24 22:00 08/03/24 08:41 Pantoprazole 40 Mg Tablet PO 40 mg QAM ADENIKE Administration Perflutren Lipid Microsphere 0 ml 08/02/24 15:50 Perflutren Lipid Microspheres 1.5 Ml Vial Diluted To 10 Ml Total Volume IV PUSH 08/05/24 15:50 ONCE PRN adequate visualization Protocol Radiology Results: ITS Impressions Head CT 08/02/24 13:21 Impression: No significant abnormality seen. Case discussed with Dr. Ramos at 1:22 PM on 08/02/2024. Chest X-Ray 08/02/24 13:24 Impression: Clear lungs. Head/Neck CTA 08/02/24 13:28 Impression: No significant abnormality seen. Labs Labs: Laboratory Results - last 24 hr 08/02/24 08/02/24 08/02/24 12:59 13:24 13:42 WBC 6.8 RBC 4.54 Hgb 13.2 Hct 39.8 MCV 87.7 MCH 29.1 MCHC 33.2 RDW 13.2 Plt Count 234 MPV 10.0 Immature Gran % (Auto) 0.4 Neut % (Auto) 68.6 Lymph % (Auto) 22.5 [place] % (Auto) 6.1 Eos % (Auto) 1.8 Baso % (Auto) 0.6 Lymph # (Auto) 1.52 [place] # (Auto) 0.4 Eos # (Auto) 0.1 Baso # (Auto) 0.0 Abs Immat Gran (auto) 0.03 Absolute Neuts (auto) 4.6 Absolute Nucleated RBC 0.000 Nucleated RBC % 0.0 PT 12.5 INR 0.9 APTT 30.9 Sodium 139 Potassium 4.2 Chloride 105 Carbon Dioxide 24 Anion Gap 10 BUN 18 H Creatinine 0.87 Estim Creat Clear Calc Not Reportable Estimated GFR > 60 Glucose 161 H POC Capillary Glucose 68 156 H Hemoglobin A1c Calcium 9.8 Magnesium Total Bilirubin 1.0 AST 30 ALT 32 Alkaline Phosphatase 85 Troponin I < 0.012 Total Protein Albumin Triglycerides Cholesterol LDL Cholesterol Direct HDL Direct TSH (Reflex) Free T4 Urine Color Urine Appearance Urine pH Ur Specific [place] Urine Protein Urine Glucose (UA) Urine Ketones Ur Blood (Man) Urine Nitrate Urine Bilirubin Urine Urobilinogen Leukocyte Esterase Rfl Urine Opiates Screen Urine Methadone Screen Ur Barbiturates Screen Ur Phencyclidine Scrn Ur Amphetamine Screen U Benzodiazepines Scrn Urine Cocaine Screen U Cannabinoids Screen Ethyl Alcohol 08/02/24 08/02/24 08/02/24 13:42 13:56 14:35 WBC RBC Hgb Hct MCV MCH MCHC RDW Plt Count MPV Immature Gran % (Auto) Neut % (Auto) Lymph % (Auto) [place] % (Auto) Eos % (Auto) Baso % (Auto) Lymph # (Auto) [place] # (Auto) Eos # (Auto) Baso # (Auto) Abs Immat Gran (auto) Absolute Neuts (auto) Absolute Nucleated RBC Nucleated RBC % PT INR APTT Sodium Potassium Chloride Carbon Dioxide Anion Gap BUN Creatinine Estim Creat Clear Calc Estimated GFR Glucose POC Capillary Glucose 94 Hemoglobin A1c Calcium Magnesium Total Bilirubin AST ALT Alkaline Phosphatase Troponin I Cancelled Total Protein 6.9 Albumin 4.1 Triglycerides Cholesterol LDL Cholesterol Direct HDL Direct TSH (Reflex) Free T4 Urine Color Yellow Urine Appearance Clear Urine pH 5.0 Ur Specific [place] 1.042 H Urine Protein Negative Urine Glucose (UA) Trace H Urine Ketones Negative Ur Blood (Man) Negative Urine Nitrate Negative Urine Bilirubin Negative Urine Urobilinogen 1.0 Leukocyte Esterase Rfl Negative Urine Opiates Screen Negative Urine Methadone Screen Negative Ur Barbiturates Screen Negative Ur Phencyclidine Scrn Negative Ur Amphetamine Screen Negative U Benzodiazepines Scrn Negative Urine Cocaine Screen Negative U Cannabinoids Screen Negative Ethyl Alcohol < 10 08/02/24 08/02/24 08/02/24 16:03 16:30 17:39 WBC RBC Hgb Hct MCV MCH MCHC RDW Plt Count MPV Immature Gran % (Auto) Neut % (Auto) Lymph % (Auto) [place] % (Auto) Eos % (Auto) Baso % (Auto) Lymph # (Auto) [place] # (Auto) Eos # (Auto) Baso # (Auto) Abs Immat Gran (auto) Absolute Neuts (auto) Absolute Nucleated RBC Nucleated RBC % PT INR APTT Sodium Potassium Chloride Carbon Dioxide Anion Gap BUN Creatinine Estim Creat Clear Calc Estimated GFR Glucose POC Capillary Glucose 47 L* 153 H 150 H Hemoglobin A1c Calcium Magnesium Total Bilirubin AST ALT Alkaline Phosphatase Troponin I Total Protein Albumin Triglycerides Cholesterol LDL Cholesterol Direct HDL Direct TSH (Reflex) Free T4 Urine Color Urine Appearance Urine pH Ur Specific [place] Urine Protein Urine Glucose (UA) Urine Ketones Ur Blood (Man) Urine Nitrate Urine Bilirubin Urine Urobilinogen Leukocyte Esterase Rfl Urine Opiates Screen Urine Methadone Screen Ur Barbiturates Screen Ur Phencyclidine Scrn Ur Amphetamine Screen U Benzodiazepines Scrn Urine Cocaine Screen U Cannabinoids Screen Ethyl Alcohol 08/02/24 08/02/24 08/03/24 20:14 21:49 00:36 WBC RBC Hgb Hct MCV MCH MCHC RDW Plt Count MPV Immature Gran % (Auto) Neut % (Auto) Lymph % (Auto) [place] % (Auto) Eos % (Auto) Baso % (Auto) Lymph # (Auto) [place] # (Auto) Eos # (Auto) Baso # (Auto) Abs Immat Gran (auto) Absolute Neuts (auto) Absolute Nucleated RBC Nucleated RBC % PT INR APTT Sodium Potassium Chloride Carbon Dioxide Anion Gap BUN Creatinine Estim Creat Clear Calc Estimated GFR Glucose POC Capillary Glucose 80 90 99 Hemoglobin A1c Calcium Magnesium Total Bilirubin AST ALT Alkaline Phosphatase Troponin I Total Protein Albumin Triglycerides Cholesterol LDL Cholesterol Direct HDL Direct TSH (Reflex) Free T4 Urine Color Urine Appearance Urine pH Ur Specific [place] Urine Protein Urine Glucose (UA) Urine Ketones Ur Blood (Man) Urine Nitrate Urine Bilirubin Urine Urobilinogen Leukocyte Esterase Rfl Urine Opiates Screen Urine Methadone Screen Ur Barbiturates Screen Ur Phencyclidine Scrn Ur Amphetamine Screen U Benzodiazepines Scrn Urine Cocaine Screen U Cannabinoids Screen Ethyl Alcohol 08/03/24 08/03/24 08/03/24 04:34 04:51 04:56 WBC 7.9 RBC 4.37 Hgb 12.5 Hct 38.2 MCV 87.4 MCH 28.6 MCHC 32.7 RDW 13.2 Plt Count 212 MPV 10.1 Immature Gran % (Auto) 0.3 Neut % (Auto) 71.4 Lymph % (Auto) 19.0 [place] % (Auto) 7.3 Eos % (Auto) 1.4 Baso % (Auto) 0.6 Lymph # (Auto) 1.50 [place] # (Auto) 0.6 Eos # (Auto) 0.1 Baso # (Auto) 0.1 Abs Immat Gran (auto) 0.02 Absolute Neuts (auto) 5.6 Absolute Nucleated RBC 0.000 Nucleated RBC % 0.0 PT INR APTT Sodium 138 Potassium 3.9 Chloride 107 Carbon Dioxide 23 Anion Gap 8 BUN 16 Creatinine 0.88 Estim Creat Clear Calc 69 Estimated GFR > 60 Glucose 139 H POC Capillary Glucose 131 H Hemoglobin A1c 5.6 Calcium 9.3 Magnesium 1.7 Total Bilirubin 1.2 AST 26 ALT 27 Alkaline Phosphatase 62 Troponin I Total Protein 6.2 L Albumin 3.6 Triglycerides 101 Cholesterol 82 LDL Cholesterol Direct < 30 HDL Direct 30 TSH (Reflex) 0.025 L Free T4 1.73 Urine Color Urine Appearance Urine pH Ur Specific [place] Urine Protein Urine Glucose (UA) Urine Ketones Ur Blood (Man) Urine Nitrate Urine Bilirubin Urine Urobilinogen Leukocyte Esterase Rfl Urine Opiates Screen Urine Methadone Screen Ur Barbiturates Screen Ur Phencyclidine Scrn Ur Amphetamine Screen U Benzodiazepines Scrn Urine Cocaine Screen U Cannabinoids Screen Ethyl Alcohol 08/03/24 07:57 WBC RBC Hgb Hct MCV MCH MCHC RDW Plt Count MPV Immature Gran % (Auto) Neut % (Auto) Lymph % (Auto) [place] % (Auto) Eos % (Auto) Baso % (Auto) Lymph # (Auto) [place] # (Auto) Eos # (Auto) Baso # (Auto) Abs Immat Gran (auto) Absolute Neuts (auto) Absolute Nucleated RBC Nucleated RBC % PT INR APTT Sodium Potassium Chloride Carbon Dioxide Anion Gap BUN Creatinine Estim Creat Clear Calc Estimated GFR Glucose POC Capillary Glucose 138 H Hemoglobin A1c Calcium Magnesium Total Bilirubin AST ALT Alkaline Phosphatase Troponin I Total Protein Albumin Triglycerides Cholesterol LDL Cholesterol Direct HDL Direct TSH (Reflex) Free T4 Urine Color Urine Appearance Urine pH Ur Specific [place] Urine Protein Urine Glucose (UA) Urine Ketones Ur Blood (Man) Urine Nitrate Urine Bilirubin Urine Urobilinogen Leukocyte Esterase Rfl Urine Opiates Screen Urine Methadone Screen Ur Barbiturates Screen Ur Phencyclidine Scrn Ur Amphetamine Screen U Benzodiazepines Scrn Urine Cocaine Screen U Cannabinoids Screen Ethyl Alcohol Quality VTE Prophylaxis VTE prophylaxis: mechanical ordered
[2024-08-03 10:35] LABS: Troponin I < 0.012 ng/mL (0.000-0.034)
[2024-08-03 10:50] LABS: Total Triiodothyronine (T3) 0.92 NG/ML (0.82-1.58)
--- NOTE | 2024-08-03 11:47 | WPDNEURCNPN ---
Assessment and Plan Assessment and plan (1) Diabetes mellitus: Qualifiers: Diabetes mellitus type: type 2 Diabetes mellitus alf insulin use: without adjunct faculty for medical terminology use Diabetes mellitus complication status: with hypoglycemia Diabetes mellitus complication detail: without coma Qualified Code(s): E11.649 - Type 2 diabetes mellitus with hypoglycemia without coma Code(s): E11.9 - Type 2 diabetes mellitus without complications Status: Chronic (2) Cerebrovascular accident (CVA) with left hemiparesis: Status: Acute Assessment and Plan: Although the findings are minimal there and does appear to be some loss of rapid alternating movement the left upper and lower limb and some flattening of the left nasolabial fold compared to the right side. There is also decreased sensation in trunk and left upper lower limb which may raise possibility of a small infarct in the ventral posterolateral nucleus of thalamus on the right side. Small vessel infarcts can occur with diabetes. Of course sometimes cerebrovascular attention can be related to hypoglycemia and the need to borne in mind. Motion avoid hypoglycemia as best as possible. I would suggest monitored closely as you are doing in the meanwhile we should treat with antiplatelets and statins as we have started her on the aspirin Plavix and atorvastatin which should be continued. Last hemoglobin A1c was 5.6. Last LDL was under 30. MRI of the brain did not show any acute infarcts nevertheless there are some white matter changes which are minor were noted. Plan As discussed above we should monitor her closely to avoid any hypoglycemia. She has been assessed by the physical therapist since he feels weak in the left lower limb. The findings are minimal nevertheless she does appear to have some evidence for a small right CVA. Clinical follow-up is recommended. Consult date: 08/03/24 HPI: Nissa Armas is a 63 year old female with history of onset of headache and left-sided numbness on 10/03/2023 while she was at [facility] She states that she woke up in the morning and a admit to go to [facility] where she would feel weak on the left side of the body to the extent that she almost had to lie down and was taken from there to the hospital. In the hospital she was found to have some weakness in the left side of the body. A CT scan of brain and CT angiogram of the head and neck were performed which did not show any significant abnormalities. There is no large vessel occlusion. Her NIH score was 3 and hence he did not qualify for tPA. She history of diabetes mellitus but she has been fairly well controlled. Last A1c was 5.6. The LDL is under 30. She is currently on aspirin Plavix and atorvastatin 40 mg a day. She is also on levetiracetam 1000 mg twice a day. Her level of consciousness was but reduced when she arrived in the hospital. Review of Systems Review of Systems: All systems reviewed & are unremarkable except as noted in HPI and below PMFSH Past Medical History Medical History (Updated 08/03/24 @ 11:54 by Faheem Singleton MD) Cerebrovascular accident (CVA) with left hemiparesis Hypothyroidism Carlin's palsy Hyperlipidemia Hypertension Diabetes mellitus Surgical History Surgical History History of nasal septoplasty History of tonsillectomy History of surgical removal of ganglion cyst History of umbilical hernia repair History of esophageal dilatation History of cholecystectomy History of dilatation and curettage Family History Family History Mother Family history non-contributory Dementia Father Cerebrovascular accident Cancer Social History Social History Smoking status: Never smoker Alcohol intake: never Alcohol use details: occasional Substance use: never Do You Feel Safe in your Home?: Yes Lack of Transportation: No Lack of Food: Never True Current Housing: I Have Housing Concerned About Future Housing: No Difficulty Paying Gas/Electric Bills: No Difficulty Paying for Meds: No Currently Unemployed: No Education: Decline to Answer Difficulty w/ Childcare or Family Care: No Gender identity (if verbalized by the patient): Female Spiritual care concerns: No Meds Home Medications and Allergies Home Medications ?Medication ?Instructions ?Recorded ?Confirmed ?Type atorvastatin 40 mg tablet 40 mg PO HS 07/11/19 08/02/24 History levothyroxine 150 mcg tablet 150 mcg PO DAILY 07/11/19 08/02/24 History losartan 25 mg tablet 25 mg PO DAILY 07/11/19 08/02/24 History metformin 1,000 mg tablet 1,000 mg PO BID 07/11/19 08/02/24 History glipizide 10 mg tablet, extended 10 mg PO BID 02/27/22 08/02/24 History release 24 hr insulin glargine-yfgn 100 unit/mL See Rx Instructions .Route .COMPLEX 02/27/22 08/02/24 History (3 mL) subcutaneous pen amlodipine 10 mg tablet 10 mg PO DAILY 08/02/24 08/02/24 History b12 1,000 unit PO DAILY 08/02/24 08/03/24 History dulaglutide 0.75 mg/0.5 mL 1.5 mg subcut WEEKLY 08/02/24 08/02/24 History subcutaneous pen injector (Trulicity) gabapentin 300 mg capsule 300 mg PO HS 08/02/24 08/02/24 History hydrochlorothiazide 25 mg tablet 25 mg PO DAILY 08/02/24 08/02/24 History levetiracetam 1,000 mg tablet 1,000 mg PO BID 08/02/24 08/02/24 History losartan 100 mg tablet 100 mg PO DAILY 08/02/24 08/02/24 History metoprolol succinate 50 mg 50 mg PO DAILY 08/02/24 08/02/24 History tablet,extended release 24 hr pantoprazole 40 mg tablet,delayed 40 mg PO .AM 08/02/24 08/02/24 History release Allergies Allergy/AdvReac Type Severity Reaction Status Date / Time codeine Allergy Mild knocks pt Verified 08/02/24 18:04 out penicillin G Allergy Mild hives Verified 08/02/24 18:04 Sulfa (Sulfonamide Allergy Mild hives Verified 08/02/24 18:04 Antibiotics) azithromycin (From Zithromax Allergy Itching Verified 08/02/24 18:04 Z-Sonny) coconut Allergy Swelling Verified 08/02/24 18:04 Vital Signs Vital Signs - 24 hr 08/02/24 13:29 08/02/24 13:41 08/02/24 13:47 Temperature 98.0 F 98.0 F Pulse Rate 74 71 63 Respiratory Rate 14 26 H 14 Blood Pressure 192/87 H 181/79 H Pulse Oximetry 100 100 100 Oxygen Delivery Room Air 08/02/24 14:02 08/02/24 14:17 08/02/24 14:30 Temperature Pulse Rate 63 66 58 L Respiratory Rate 11 L 12 11 L Blood Pressure 173/87 H 181/91 H Pulse Oximetry 100 100 100 Oxygen Delivery 08/02/24 14:33 08/02/24 14:36 08/02/24 14:47 Temperature Pulse Rate 59 L 62 Respiratory Rate 11 L 12 Blood Pressure 125/113 H Pulse Oximetry 100 100 100 Oxygen Delivery 08/02/24 15:01 08/02/24 15:17 08/02/24 15:32 Temperature Pulse Rate 60 62 62 Respiratory Rate 16 13 16 Blood Pressure 150/82 H 159/74 H 164/74 H Pulse Oximetry 100 99 100 Oxygen Delivery 08/02/24 15:47 08/02/24 16:02 08/02/24 16:17 Temperature Pulse Rate 61 64 69 Respiratory Rate 18 19 14 Blood Pressure 173/73 H 162/73 H 166/67 H Pulse Oximetry 100 99 100 Oxygen Delivery 08/02/24 16:32 08/02/24 16:47 08/02/24 17:02 Temperature Pulse Rate 60 66 60 Respiratory Rate 15 17 18 Blood Pressure 165/87 H 164/70 H 140/69 Pulse Oximetry 100 100 100 Oxygen Delivery 08/02/24 17:17 08/02/24 17:37 08/02/24 18:35 Temperature 97.4 F L Pulse Rate 62 61 Respiratory Rate 19 16 Blood Pressure 154/67 H 146/57 H Pulse Oximetry 99 100 Oxygen Delivery Room Air 08/02/24 20:00 08/02/24 20:00 08/02/24 20:00 Temperature 97.5 F L Pulse Rate 62 62 62 Respiratory Rate 18 18 Blood Pressure 120/61 Pulse Oximetry 98 98 Oxygen Delivery Room Air 08/02/24 23:35 08/03/24 00:00 08/03/24 03:38 Temperature 98.1 F 98.7 F Pulse Rate 65 59 L 58 L Respiratory Rate 17 16 Blood Pressure 136/51 L 132/64 Pulse Oximetry 99 97 Oxygen Delivery 08/03/24 04:00 08/03/24 08:12 08/03/24 08:39 Temperature 97.2 F L Pulse Rate 58 L 67 Respiratory Rate 14 Blood Pressure 132/65 Pulse Oximetry 99 Oxygen Delivery Room Air 08/03/24 08:41 08/03/24 08:41 08/03/24 11:13 Temperature Pulse Rate 67 62 Respiratory Rate 14 Blood Pressure Pulse Oximetry 99 Oxygen Delivery Room Air Room Air Exam Narrative: Fully conscious alert oriented to self time place and person. Speech is fluent and articulate. No aphasia or dysarthria. Examination head and neck shows no evidence of external trauma. No nuchal rigidity. Cranial nerves annual testing show mild flattening of the left nasolabial fold compared to the right side. No tongue deviation. Facial sensation intact. Extraocular movements intact. López were confrontation normal. Other cranial normal limits. Motor system normal power and tone in both upper and lower limbs however she appears to have some loss of rapid alternating movement of the left upper and left lower limb compared to the right side. Deep tendon if his overall decreased on both sides and did not show any hyperreflexia on the left than right side. Sensory examination reveals some sensory loss in the left lower limb as well as left upper limb and trunk. Results Labs 08/03/24 04:56 08/03/24 04:56 Labs: Short CBC 08/02/24 08/03/24 Range/Units 13:42 04:56 WBC 6.8 7.9 (4.5-10.0) K/mm3 Hgb 13.2 12.5 (12.0-15.0) g/dL Hct 39.8 38.2 (37.0-47.0) % Plt Count 234 212 (150-375) k/mm3 BMP 08/02/24 08/03/24 13:42 04:56 Sodium 139 138 Potassium 4.2 3.9 Chloride 105 107 Carbon Dioxide 24 23 BUN 18 H 16 Creatinine 0.87 0.88 Glucose 161 H 139 H Calcium 9.8 9.3 Cardiac Enzymes 08/02/24 08/02/24 08/03/24 Range/Units 13:42 13:42 10:05 Troponin I < 0.012 Cancelled < 0.012 (0.000-0.034) ng/mL Liver Function 08/02/24 08/03/24 Range/Units 13:42 04:56 Total Bilirubin 1.0 1.2 (0.2-1.3) mg/dL AST 30 26 (14-36) U/L ALT 32 27 (6-35) U/L Alkaline Phosphatase 85 62 (38-126) U/L Albumin 4.1 3.6 (3.5-5.1) g/dL Urine 08/02/24 Range/Units 13:56 Urine Color Yellow (Yellow) Urine Appearance Clear (Clear) Urine pH 5.0 (5.0-9.0) Ur Specific [place] 1.042 H (1.001-1.035) Urine Protein Negative (Negative) mg/dL Urine Glucose (UA) Trace H (Negative) mg/dL
[2024-08-03 12:34] LABS: Glucose Point of Care 183 mg/dl (65-105)
[2024-08-03] MEDS: PERFLUTREN LIPID MICROSPHERES 1.5 ML VIAL DILUTED TO 10 ML TOTAL VOLUME IV PUSH (13:24)
--- NOTE | 2024-08-03 14:37 | IVDEFINITY ---
Prior to administration of IV Definity the patient was educated on the risks and benefits of the imaging enhancing agent including potential adverse side effects. The patient verbalized understanding. Allergies were verified. No exclusion criteria were identified and at least one of the following inclusion criteria were met: 1) physician request, 2) patient technically difficult to image (per the [place] [employer] guidelines of two or more segments not discernable within the apical view), or 3) questionable left ventricular function. ?
[2024-08-03 16:28] LABS: Troponin I < 0.012 ng/mL (0.000-0.034)
[2024-08-03 17:26] LABS: Glucose Point of Care 130 mg/dl (65-105)
[2024-08-03] MEDS: GABAPENTIN 300 MG CAPSULE PO (20:35)
[2024-08-03] MEDS: ATORVASTATIN 40 MG TABLET PO (20:35)
[2024-08-03 21:33] LABS: Glucose Point of Care 154 mg/dl (65-105)
[2024-08-04] VITALS: BP 129/61; PULSE 65; PULSE 71; RESP 20; TEMP 36.9; O2SAT 98
[2024-08-04] MEDS: ACETAMINOPHEN 500 MG TABLET 1000 MG PO ×2 (00:20→11:56)
[2024-08-04] MEDS: diphenhydrAMINE HCl INJ 50 MG/ML VIAL 25 MG IV PUSH (00:25)
[2024-08-04] MEDS: KETOROLAC 30 MG/ML VIAL (*BKC) IV PUSH (00:25)
[2024-08-04 00:34] LABS: Glucose Point of Care 171 mg/dl (65-105)
[2024-08-04 04:00] VITALS: BP 108/53; PULSE 59; PULSE 63; RESP 20; TEMP 36.2; O2SAT 98
[2024-08-04 05:31] LABS: Basophils Absolute Auto 0.1 K/mm3 (0.0-0.1); Basophils Percent Auto 0.8 % (0.2-1.2); Eosinophils Absolute Auto 0.1 K/mm3 (0-0.3); Eosinophils Percent Auto 1.7 % (0-4.4); Hematocrit 38.2 % (37.0-47.0); Hemoglobin 12.5 g/dL (12.0-15.0); Immature Granulocyte Absolute 0.02 K/mm3 (0.00-0.031); Immature Granulocyte Percent A 0.3 % (0-0.5); Lymphocytes Absolute Auto 1.77 K/mm3 (0.9-3.2); Lymphocytes Percent Auto 27.3 % (18.3-44.2); Mean Corpuscular HGB Conc 32.7 g/dl (32-36); Mean Corpuscular Hemoglobin 28.6 pg (26-34); Mean Corpuscular Volume 87.4 fl (80-100); Mean Platelet Volume 9.9 fl (7.4-10.4); Monocytes Absolute Auto 0.5 K/mm3 (0.1-0.6); Neutrophils Percent Auto 61.9 % (45.5-73.1); Platelet Count Result 218 k/mm3 (150-375); Red Blood Count 4.37 M/mm3 (4.2-5.4); Red Cell Distribution Width 13.1 % (11.5-14.5); White Blood Count 6.5 K/mm3 (4.5-10.0)
[2024-08-04 05:55] LABS: Alanine Aminotransferase 27 U/L (6-35); Albumin Level 3.7 g/dL (3.5-5.1); Alkaline Phosphatase 60 U/L (38-126); Anion Gap 8 mmol/L (4-12); Aspartate Amino Transferase 27 U/L (14-36); Bilirubin,Total 1.3 mg/dL (0.2-1.3); Blood Urea Nitrogen 18 mg/dL (7-17); Calcium 9.5 mg/dL (8.4-10.2); Carbon Dioxide 24 mmol/L (22-30); Chloride 104 mmol/L (98-107); Estimated CRCL calculation 66 ml/min; Estimated Glomerular Filt Rate > 60; Glucose 146 mg/dL (65-110); Sodium 136 mmol/L (137-145); Total Protein 6.4 g/dL (6.3-8.2)
[2024-08-04 06:17] LABS: Glucose Point of Care 164 mg/dl (65-105)
[2024-08-04] MEDS: levETIRAcetam 500 MG TABLET 1000 MG PO ×2 (06:20→17:15)
[2024-08-04] MEDS: LEVOTHYROXINE SODIUM 112 MCG, LEVOTHYROXINE SODIUM 25 MCG 137 MCG PO (06:20)
[2024-08-04 08:00] VITALS: BP 127/54; PULSE 59; PULSE 78; RESP 18; TEMP 36.8; O2SAT 100
[2024-08-04 08:21] LABS: Glucose Point of Care 126 mg/dl (65-105)
[2024-08-04] MEDS: PANTOPRAZOLE 40 MG TABLET PO (09:05)
[2024-08-04] MEDS: ASPIRIN 81 MG ENTERIC TABLET PO (09:05)
[2024-08-04] MEDS: hydroCHLOROthiazide 25 MG TABLET PO (09:05)
[2024-08-04] MEDS: CLOPIDOGREL BISULFATE 75 MG TABLET PO (09:05)
[2024-08-04] MEDS: LOSARTAN POTASSIUM 25 MG TABLET PO (09:05)
--- NOTE | 2024-08-04 11:25 | PM.IMPN ---
Progress Note: A&P Assessment and Plan (1) Left sided numbness: Code(s): R20.0 - Anesthesia of skin Status: Acute Assessment and Plan: New deficits of blurred vision, left-sided paresthesias, left lower extremity weakness starting on 08/02 at 9:00 a.m. Last known well at 8:00 a.m. on 08/02. - admission for observation and telemetry - not candidate for thrombolytics due to low NIHSS, unclear diagnosis, patient preference - not candidate for thrombectomy, no LVO on CTA - CXR: clear lungs - CTA head/neck and head CT (08/02) unremarkable - Neurology consulted, appreciate recommendations. - brain MRI w/wo showed a normal aging brain. No acute intracranial process. - echo w/Bubble showed: Summary 1. Left ventricular chamber dimension is normal. 2. Left ventricular systolic function is normal, estimated at 65-70. 3. Right ventricular systolic function is normal. 4. Left atrial chamber dimension is mildly enlarged. 5. Intact interatrial septum visualized by color flow and agitated saline imaging. Negative bubble study. 6. There is mild tricuspid valve regurgitation. - neuro checks Q4 - PT/OT to eval and treat - monitor daily labs, check lipid panel, TSH (hx of hypothyroidism) and A1C - start Plavix 75 mg PO, ASA 81 mg - continue atorvastatin 40 mg daily - consider 30 day event monitoring at discharge - denies numbness today. - Trop <0.012 X 2. (2) Left leg weakness: Code(s): R29.898 - Other symptoms and signs involving the musculoskeletal system Status: Acute Assessment and Plan: - see above (3) Diabetes mellitus: Qualifiers: Diabetes mellitus complication detail: without coma Diabetes mellitus complication status: with hypoglycemia Diabetes mellitus terminal gauger supervisor insulin use: without terminal gauger supervisor use Diabetes mellitus type: type 2 Qualified Code(s): E11.649 - Type 2 diabetes mellitus with hypoglycemia without coma Code(s): E11.9 - Type 2 diabetes mellitus without complications Status: Chronic Assessment and Plan: - initially hypoglycemic at 68 requiring D50, stable since correction. ED provided update at 4:00 p.m., patient hypoglycemic in the upper 40s. Plan to feed patient and correct with D50. Glucose checks exchange from ACHS to Q2 until stable. Patient's glucose continuing to downtrend. Will start D5LR at 75 mL/hr x1L. - hypoglycemia protocol - POC blood glucose ACHS -> Q4H until stable - home medication: Hold metformin, glipizide, glargine, Trulicity (NF). - correct regimen ordered - low dose TIDWM, based off TDD - HgbA1C 5.6%. - Blood sugars today 99-183. Patient completed liter of D5LR. Monitor blood sugars q4. (4) Hyperlipidemia: Qualifiers: Hyperlipidemia type: unspecified Qualified Code(s): E78.5 - Hyperlipidemia, unspecified Code(s): E78.5 - Hyperlipidemia, unspecified Status: Chronic Assessment and Plan: - continue home medication: Atorvastatin 40 mg daily - checking lipid panel (5) Hypertension: Qualifiers: Hypertension type: primary hypertension Qualified Code(s): I10 - Essential (primary) hypertension Code(s): I10 - Essential (primary) hypertension Status: Chronic Assessment and Plan: - chronic, currently 127/54. - continue home medications: Losartan, hydrochlorothiazide - monitor (6) Hypothyroidism: Code(s): E03.9 - Hypothyroidism, unspecified Status: Acute Assessment and Plan: TSH 0.025, free T4 1.73, and Total T3 0.92. Decrease Levothyroxine 137 mcg PO daily. Subjective Date/time seen: 08/04/24 11:25 Interval history: Patient lying in bed. Patient reports pain from left cheek going up and around to back of head that is a 3, frequent, and aching. Patient denies chest pain, palpitations, nausea, vomiting, numbness, or tingling. Review of Systems Review of Systems: All systems reviewed & are unremarkable except as noted in HPI and below Exam Const: General: comfortable and no acute distress Resp: Effort & Inspection: normal respiratory effort Auscultation: clear to auscultation bilaterally Cardio: Rate: regular rate Rhythm: regular rhythm Other: Telemetry- SR 74. GI: GI Palp: Yes Soft to palpation Auscultation: normal bowel sounds Neuro: Speech: normal speech Extrem: General: no pedal edema Psych: Mental Status: mental status grossly normal Affect: normal affect Objective Data Vital Signs Vital Signs: Vital Signs - 24 hr 08/03/24 12:00 08/03/24 13:50 08/03/24 16:00 Temperature 97.2 F L Pulse Rate 64 61 73 Respiratory Rate 16 Blood Pressure 124/57 L Pulse Oximetry 100 Oxygen Delivery 08/03/24 17:22 08/03/24 20:00 08/03/24 20:00 Temperature 97.3 F L 97.6 F Pulse Rate 68 62 Respiratory Rate 16 20 Blood Pressure 139/62 131/54 L Pulse Oximetry 97 98 Oxygen Delivery Room Air 08/03/24 20:00 08/04/24 00:00 08/04/24 00:00 Temperature 98.5 F Pulse Rate 63 71 65 Respiratory Rate 20 Blood Pressure 129/61 Pulse Oximetry 98 Oxygen Delivery 08/04/24 04:00 08/04/24 04:00 08/04/24 08:00 Temperature 97.2 F L 98.2 F Pulse Rate 63 59 L 78 Respiratory Rate 20 18 Blood Pressure 108/53 L 127/54 L Pulse Oximetry 98 100 Oxygen Delivery 08/04/24 08:00 08/04/24 09:05 Temperature Pulse Rate 59 L Respiratory Rate Blood Pressure Pulse Oximetry Oxygen Delivery Room Air Intake/Output Intake/Output: Intake & Output 08/01/24 08/02/24 08/03/24 08/04/24 23:59 23:59 23:59 23:59 Intake Total 120 1250 760 Balance 120 1250 760 Meds/Results Medications: Active Medications Generic Name Dose Route Start Last Admin Trade Name Freq PRN Reason Stop Dose Admin Acetaminophen 1,000 mg 08/03/24 22:26 08/04/24 00:20 Acetaminophen 500 Mg Tablet PO 1,000 mg Q6H PRN Administration Mild Pain (1-3) or Fever Aspirin 81 mg 08/03/24 09:00 08/04/24 09:05 Aspirin 81 Mg Enteric Tablet PO 81 mg QAM ADENIKE Administration Atorvastatin Calcium 40 mg 08/03/24 21:00 08/03/24 20:35 Atorvastatin 40 Mg Tablet PO 40 mg HS ADENIKE Administration Clopidogrel Bisulfate 75 mg 08/03/24 09:00 08/04/24 09:05 Clopidogrel Bisulfate 75 Mg Tablet PO 75 mg QAM ADENIKE Administration Dextrose 12.5 gm 08/02/24 15:52 08/02/24 20:14 Dextrose 50% 25 Gm/50 Ml Syringe IV PUSH 12.5 gm PRN PRN Administration Hypoglycemia Protocol Gabapentin 300 mg 08/02/24 21:00 08/03/24 20:35 Gabapentin 300 Mg Capsule PO 300 mg HS ADENIKE Administration Glucagon 1 mg 08/02/24 15:52 Glucagon For Inj 1 Mg Vial IM PRN PRN Hypoglycemia Protocol Glucose 15 gm 08/02/24 15:52 Glucose Oral Gel 15 Gm Of Glucse In 37.5 Gm Tube PO PRN PRN Hypoglycemia Protocol Hydrochlorothiazide 25 mg 08/03/24 09:00 08/04/24 09:05 Hydrochlorothiazide 25 Mg Tablet PO 25 mg DAILY ADENIKE Administration Dextrose 1,000 mls @ 100 mls/hr 08/02/24 15:52 Dextrose 5% 1,000 Ml IVPB PRN PRN Hypoglycemia Protocol Insulin Aspart 2 - 5 units 08/02/24 17:00 08/04/24 09:02 Insulin Aspart (*Bkc) 100 Units/Ml SUB-Q Not Given TIDWM ADENIKE Protocol Levetiracetam 1,000 mg 08/03/24 06:00 08/04/24 06:20 Levetiracetam 500 Mg Tablet PO 1,000 mg Q12H ADENIKE Administration Levothyroxine Sodium 112 mcg/ 137 mcg 08/04/24 06:30 08/04/24 06:20 Levothyroxine Sodium 25 mcg PO 137 mcg DAILY@0630 ADENIKE Administration Losartan Potassium 25 mg 08/03/24 09:00 08/04/24 09:05 Losartan Potassium 25 Mg Tablet PO 25 mg DAILY ADENIKE Administration Pantoprazole Sodium 40 mg 08/02/24 22:00 08/04/24 09:05 Pantoprazole 40 Mg Tablet PO 40 mg QAM ADENIKE Administration Radiology Results: ITS Impressions Head CT 08/02/24 13:21 Impression: No significant abnormality seen. Case discussed with Dr. Ramos at 1:22 PM on 08/02/2024. Chest X-Ray 08/02/24 13:24 Impression: Clear lungs. Head/Neck CTA 08/02/24 13:28 Impression: No significant abnormality seen. Brain MRI 08/03/24 10:59 IMPRESSION: 1. Normal aging brain. No acute intracranial process. Labs Labs: Laboratory Results - last 24 hr 08/03/24 08/03/24 08/03/24 12:10 15:51 17:21 WBC RBC Hgb Hct MCV MCH MCHC RDW Plt Count MPV Immature Gran % (Auto) Neut % (Auto) Lymph % (Auto) [place] % (Auto) Eos % (Auto) Baso % (Auto) Lymph # (Auto) [place] # (Auto) Eos # (Auto) Baso # (Auto) Abs Immat Gran (auto) Absolute Neuts (auto) Absolute Nucleated RBC Nucleated RBC % Sodium Potassium Chloride Carbon Dioxide Anion Gap BUN Creatinine Estim Creat Clear Calc Estimated GFR Glucose POC Capillary Glucose 183 H 130 H Calcium Total Bilirubin AST ALT Alkaline Phosphatase Troponin I < 0.012 Total Protein Albumin 08/03/24 08/04/24 08/04/24 20:45 00:06 05:01 WBC RBC Hgb Hct MCV MCH MCHC RDW Plt Count MPV Immature Gran % (Auto) Neut % (Auto) Lymph % (Auto) [place] % (Auto) Eos % (Auto) Baso % (Auto) Lymph # (Auto) [place] # (Auto) Eos # (Auto) Baso # (Auto) Abs Immat Gran (auto) Absolute Neuts (auto) Absolute Nucleated RBC Nucleated RBC % Sodium Potassium Chloride Carbon Dioxide Anion Gap BUN Creatinine Estim Creat Clear Calc Estimated GFR Glucose POC Capillary Glucose 154 H 171 H 164 H Calcium Total Bilirubin AST ALT Alkaline Phosphatase Troponin I Total Protein Albumin 08/04/24 08/04/24 05:09 08:18 WBC 6.5 RBC 4.37 Hgb 12.5 Hct 38.2 MCV 87.4 MCH 28.6 MCHC 32.7 RDW 13.1 Plt Count 218 MPV 9.9 Immature Gran % (Auto) 0.3 Neut % (Auto) 61.9 Lymph % (Auto) 27.3 [place] % (Auto) 8.0 Eos % (Auto) 1.7 Baso % (Auto) 0.8 Lymph # (Auto) 1.77 [place] # (Auto) 0.5 Eos # (Auto) 0.1 Baso # (Auto) 0.1 Abs Immat Gran (auto) 0.02 Absolute Neuts (auto) 4.0 Absolute Nucleated RBC 0.000 Nucleated RBC % 0.0 Sodium 136 L Potassium 4.0 Chloride 104 Carbon Dioxide 24 Anion Gap 8 BUN 18 H Creatinine 0.92 Estim Creat Clear Calc 66 Estimated GFR > 60 Glucose 146 H POC Capillary Glucose 126 H Calcium 9.5 Total Bilirubin 1.3 AST 27 ALT 27 Alkaline Phosphatase 60 Troponin I Total Protein 6.4 Albumin 3.7 Quality VTE Prophylaxis VTE prophylaxis: mechanical ordered
[2024-08-04 12:00] VITALS: BP 130/63; PULSE 62; RESP 18; TEMP 36.8; O2SAT 99
[2024-08-04 12:16] LABS: Glucose Point of Care 224 mg/dl (65-105)
[2024-08-04] MEDS: INSULIN ASPART (*BKC) 100 UNITS/ML SUB-Q (12:38)
[2024-08-04 12:50] VITALS: BMI 36.3
[2024-08-04] MEDS: traMADol HCL (*CRX) 50 MG TABLET PO (13:07)
[2024-08-04 16:00] VITALS: BP 128/70; PULSE 53; PULSE 62; RESP 16; TEMP 36.8; O2SAT 100
[2024-08-04 16:48] LABS: Glucose Point of Care 127 mg/dl (65-105)
[2024-08-04 20:00] VITALS: BP 120/50; PULSE 55; PULSE 60; RESP 18; TEMP 36.4; O2SAT 100
[2024-08-04 21:29] LABS: Glucose Point of Care 162 mg/dl (65-105)
[2024-08-04] MEDS: GABAPENTIN 300 MG CAPSULE PO (21:41)
[2024-08-04] MEDS: ATORVASTATIN 40 MG TABLET PO (21:41)
[2024-08-05] VITALS: BP 123/61; PULSE 58; PULSE 61; RESP 18; TEMP 36.3; O2SAT 99
[2024-08-05 00:08] LABS: Glucose Point of Care 147 mg/dl (65-105)
[2024-08-05 04:00] VITALS: BP 143/62; PULSE 59; PULSE 60; RESP 18; TEMP 36.1; O2SAT 100
[2024-08-05 04:27] LABS: Glucose Point of Care 147 mg/dl (65-105)
[2024-08-05 05:18] LABS: Basophils Percent Auto 0.7 % (0.2-1.2); Eosinophils Absolute Auto 0.1 K/mm3 (0-0.3); Eosinophils Percent Auto 1.5 % (0-4.4); Hematocrit 39.7 % (37.0-47.0); Hemoglobin 13.1 g/dL (12.0-15.0); Immature Granulocyte Absolute 0.02 K/mm3 (0.00-0.031); Immature Granulocyte Percent A 0.3 % (0-0.5); Mean Corpuscular Volume 87.8 fl (80-100); Monocytes Absolute Auto 0.5 K/mm3 (0.1-0.6); Neutrophils Absolute Auto 3.9 K/mm3 (1.3-6.7); Neutrophils Percent Auto 64.5 % (45.5-73.1); Platelet Count Result 217 k/mm3 (150-375); Red Blood Count 4.52 M/mm3 (4.2-5.4); Red Cell Distribution Width 13.2 % (11.5-14.5)
[2024-08-05 05:29] LABS: Alanine Aminotransferase 30 U/L (6-35); Albumin Level 3.9 g/dL (3.5-5.1); Alkaline Phosphatase 68 U/L (38-126); Anion Gap 6 mmol/L (4-12); Aspartate Amino Transferase 28 U/L (14-36); Bilirubin,Total 1.3 mg/dL (0.2-1.3); Blood Urea Nitrogen 16 mg/dL (7-17); Calcium 9.5 mg/dL (8.4-10.2); Carbon Dioxide 30 mmol/L (22-30); Chloride 101 mmol/L (98-107); Estimated CRCL calculation 65 ml/min; Estimated Glomerular Filt Rate 60; Glucose 146 mg/dL (65-110); Sodium 137 mmol/L (137-145); Total Protein 6.7 g/dL (6.3-8.2)
[2024-08-05] MEDS: ACETAMINOPHEN 500 MG TABLET 1000 MG PO (05:32)
[2024-08-05] MEDS: levETIRAcetam 500 MG TABLET 1000 MG PO (05:32)
[2024-08-05] MEDS: LEVOTHYROXINE SODIUM 112 MCG, LEVOTHYROXINE SODIUM 25 MCG 137 MCG PO (05:33)
[2024-08-05 07:41] VITALS: O2SAT 95
[2024-08-05 08:00] VITALS: BP 129/66; PULSE 54; PULSE 61; RESP 18; TEMP 37; O2SAT 98
[2024-08-05 08:19] LABS: Glucose Point of Care 125 mg/dl (65-105)
[2024-08-05] MEDS: CLOPIDOGREL BISULFATE 75 MG TABLET PO (08:22)
[2024-08-05] MEDS: ASPIRIN 81 MG ENTERIC TABLET PO (08:22)
[2024-08-05] MEDS: PANTOPRAZOLE 40 MG TABLET PO (08:22)
[2024-08-05] MEDS: LOSARTAN POTASSIUM 25 MG TABLET PO (08:23)
[2024-08-05] MEDS: hydroCHLOROthiazide 25 MG TABLET PO (08:23)
--- NOTE | 2024-08-05 08:45 | PM.IMPN ---
Progress Note: A&P Assessment and Plan (1) Left sided numbness: Code(s): R20.0 - Anesthesia of skin Status: Acute Assessment and Plan: New deficits of blurred vision, left-sided paresthesias, left lower extremity weakness starting on 08/02 at 9:00 a.m. Last known well at 8:00 a.m. on 08/02. - admission for observation and telemetry - not candidate for thrombolytics due to low NIHSS, unclear diagnosis, patient preference - not candidate for thrombectomy, no LVO on CTA - CXR: clear lungs - CTA head/neck and head CT (08/02) unremarkable - Neurology consulted, appreciate recommendations. - brain MRI w/wo showed a normal aging brain. No acute intracranial process. - echo w/Bubble showed: Summary 1. Left ventricular chamber dimension is normal. 2. Left ventricular systolic function is normal, estimated at 65-70. 3. Right ventricular systolic function is normal. 4. Left atrial chamber dimension is mildly enlarged. 5. Intact interatrial septum visualized by color flow and agitated saline imaging. Negative bubble study. 6. There is mild tricuspid valve regurgitation. - neuro checks Q4 - PT/OT to eval and treat - monitor daily labs, check lipid panel, TSH (hx of hypothyroidism) and A1C - start Plavix 75 mg PO, ASA 81 mg - continue atorvastatin 40 mg daily - consider 30 day event monitoring at discharge - denies numbness today. - Trop <0.012 X 2. 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 ED provided update at 4:00 p.m., patient hypoglycemic in the upper 40s. Plan to feed patient and correct with D50. Glucose checks exchange from ACHS to Q2 until stable. Patient's glucose continuing to downtrend. Will start D5LR at 75 mL/hr x1L. - hypoglycemia protocol - POC blood glucose ACHS -> Q4H until stable - home medication: Hold metformin, glipizide, glargine, Trulicity (NF). - correct regimen ordered - low dose TIDWM, based off TDD - HgbA1C 5.6%. - Blood sugars today 99-183. Patient completed liter of D5LR. Monitor blood sugars q4. (4) Hyperlipidemia: Qualifiers: Hyperlipidemia type: unspecified Qualified Code(s): E78.5 - Hyperlipidemia, unspecified Code(s): E78.5 - Hyperlipidemia, unspecified Status: Chronic Assessment and Plan: - continue home medication: Atorvastatin 40 mg daily - checking lipid panel (5) Hypertension: Qualifiers: Hypertension type: primary hypertension Qualified Code(s): I10 - Essential (primary) hypertension Code(s): I10 - Essential (primary) hypertension Status: Chronic Assessment and Plan: - chronic, currently 127/54. - continue home medications: Losartan, hydrochlorothiazide - monitor (6) Hypothyroidism: Code(s): E03.9 - Hypothyroidism, unspecified Status: Acute Assessment and Plan: TSH 0.025, free T4 1.73, and Total T3 0.92. Decrease Levothyroxine 137 mcg PO daily. Subjective Date/time seen: 08/05/24 08:45 Interval history: VSS. Labs Admitted for strokelike symptoms. Neurology following. Patient lying in bed. Patient reports pain from left cheek going up and around to back of head that is a 3, frequent, and aching. Patient denies chest pain, palpitations, nausea, vomiting, numbness, or tingling. Review of Systems Review of Systems: All systems reviewed & are unremarkable except as noted in HPI and below Exam Narrative: LLE drift Objective Data Vital Signs Vital Signs: Vital Signs - 24 hr 08/04/24 09:05 08/04/24 12:00 08/04/24 12:00 Temperature 98.2 F Pulse Rate 62 62 Respiratory Rate 18 Blood Pressure 130/63 Pulse Oximetry 99 Oxygen Delivery Room Air 08/04/24 16:00 08/04/24 16:00 08/04/24 20:00 Temperature 98.3 F 97.6 F Pulse Rate 53 L 62 60 Respiratory Rate 16 18 Blood Pressure 128/70 120/50 L Pulse Oximetry 100 100 Oxygen Delivery 08/04/24 20:00 08/04/24 21:36 08/05/24 00:00 Temperature Pulse Rate 55 L 58 L Respiratory Rate Blood Pressure Pulse Oximetry Oxygen Delivery Room Air 08/05/24 00:00 08/05/24 04:00 08/05/24 04:00 Temperature 97.3 F L 97 F L Pulse Rate 61 59 L 60 Respiratory Rate 18 18 Blood Pressure 123/61 143/62 H Pulse Oximetry 99 100 Oxygen Delivery 08/05/24 07:41 Temperature Pulse Rate Respiratory Rate Blood Pressure Pulse Oximetry 95 Oxygen Delivery Room Air Intake/Output Intake/Output: Intake & Output 08/02/24 08/03/24 08/04/24 08/05/24 23:59 23:59 23:59 23:59 Intake Total 120 1250 1790 300 Balance 120 1250 1790 300 Meds/Results Medications: Active Medications Generic Name Dose Route Start Last Admin Trade Name Freq PRN Reason Stop Dose Admin Acetaminophen 1,000 mg 08/03/24 22:26 08/05/24 05:32 Acetaminophen 500 Mg Tablet PO 1,000 mg Q6H PRN Administration Mild Pain (1-3) or Fever Aspirin 81 mg 08/03/24 09:00 08/05/24 08:22 Aspirin 81 Mg Enteric Tablet PO 81 mg QAM ADENIKE Administration Atorvastatin Calcium 40 mg 08/03/24 21:00 08/04/24 21:41 Atorvastatin 40 Mg Tablet PO 40 mg HS ADENIKE Administration Clopidogrel Bisulfate 75 mg 08/03/24 09:00 08/05/24 08:22 Clopidogrel Bisulfate 75 Mg Tablet PO 75 mg QAM ADENIKE Administration Dextrose 12.5 gm 08/02/24 15:52 08/02/24 20:14 Dextrose 50% 25 Gm/50 Ml Syringe IV PUSH 12.5 gm PRN PRN Administration Hypoglycemia Protocol Gabapentin 300 mg 08/02/24 21:00 08/04/24 21:41 Gabapentin 300 Mg Capsule PO 300 mg HS ADENIKE Administration Glucagon 1 mg 08/02/24 15:52 Glucagon For Inj 1 Mg Vial IM PRN PRN Hypoglycemia Protocol Glucose 15 gm 08/02/24 15:52 Glucose Oral Gel 15 Gm Of Glucse In 37.5 Gm Tube PO PRN PRN Hypoglycemia Protocol Hydrochlorothiazide 25 mg 08/03/24 09:00 08/05/24 08:23 Hydrochlorothiazide 25 Mg Tablet PO 25 mg DAILY ADENIKE Administration Dextrose 1,000 mls @ 100 mls/hr 08/02/24 15:52 Dextrose 5% 1,000 Ml IVPB PRN PRN Hypoglycemia Protocol Insulin Aspart 2 - 5 units 08/02/24 17:00 08/05/24 08:21 Insulin Aspart (*Bkc) 100 Units/Ml SUB-Q Not Given TIDWM ADENIKE Protocol Levetiracetam 1,000 mg 08/03/24 06:00 08/05/24 05:32 Levetiracetam 500 Mg Tablet PO 1,000 mg Q12H ADENIKE Administration Levothyroxine Sodium 112 mcg/ 137 mcg 08/04/24 06:30 08/05/24 05:33 Levothyroxine Sodium 25 mcg PO 137 mcg DAILY@0630 ADENIKE Administration Losartan Potassium 25 mg 08/03/24 09:00 08/05/24 08:23 Losartan Potassium 25 Mg Tablet PO 25 mg DAILY ADENIKE Administration Pantoprazole Sodium 40 mg 08/02/24 22:00 08/05/24 08:22 Pantoprazole 40 Mg Tablet PO 40 mg QAM ADENIKE Administration Tramadol HCl 50 mg 08/04/24 12:53 08/04/24 13:07 Tramadol Hcl (*Crx) 50 Mg Tablet PO 50 mg Q6H PRN Administration Pain Rated 4-6 Radiology Results: ITS Impressions Head CT 08/02/24 13:21 Impression: No significant abnormality seen. Case discussed with Dr. Ramos at 1:22 PM on 08/02/2024. Chest X-Ray 08/02/24 13:24 Impression: Clear lungs. Head/Neck CTA 08/02/24 13:28 Impression: No significant abnormality seen. Brain MRI 08/03/24 10:59 IMPRESSION: 1. Normal aging brain. No acute intracranial process. Labs Labs: Laboratory Results - last 24 hr 08/04/24 08/04/24 08/04/24 12:13 16:45 20:48 WBC RBC Hgb Hct MCV MCH MCHC RDW Plt Count MPV Immature Gran % (Auto) Neut % (Auto) Lymph % (Auto) [place] % (Auto) Eos % (Auto) Baso % (Auto) Lymph # (Auto) [place] # (Auto) Eos # (Auto) Baso # (Auto) Abs Immat Gran (auto) Absolute Neuts (auto) Absolute Nucleated RBC Nucleated RBC % Sodium Potassium Chloride Carbon Dioxide Anion Gap BUN Creatinine Estim Creat Clear Calc Estimated GFR Glucose POC Capillary Glucose 224 H 127 H 162 H Calcium Total Bilirubin AST ALT Alkaline Phosphatase Total Protein Albumin 08/05/24 08/05/24 08/05/24 00:05 04:21 04:55 WBC 6.0 RBC 4.52 Hgb 13.1 Hct 39.7 MCV 87.8 MCH 29.0 MCHC 33.0 RDW 13.2 Plt Count 217 MPV 10.0 Immature Gran % (Auto) 0.3 Neut % (Auto) 64.5 Lymph % (Auto) 25.0 [place] % (Auto) 8.0 Eos % (Auto) 1.5 Baso % (Auto) 0.7 Lymph # (Auto) 1.50 [place] # (Auto) 0.5 Eos # (Auto) 0.1 Baso # (Auto) 0.0 Abs Immat Gran (auto) 0.02 Absolute Neuts (auto) 3.9 Absolute Nucleated RBC 0.000 Nucleated RBC % 0.0 Sodium 137 Potassium 4.0 Chloride 101 Carbon Dioxide 30 Anion Gap 6 BUN 16 Creatinine 0.94 Estim Creat Clear Calc 65 Estimated GFR 60 Glucose 146 H POC Capillary Glucose 147 H 147 H Calcium 9.5 Total Bilirubin 1.3 AST 28 ALT 30 Alkaline Phosphatase 68 Total Protein 6.7 Albumin 3.9 08/05/24 08:17 WBC RBC Hgb Hct MCV MCH MCHC RDW Plt Count MPV Immature Gran % (Auto) Neut % (Auto) Lymph % (Auto) [place] % (Auto) Eos % (Auto) Baso % (Auto) Lymph # (Auto) [place] # (Auto) Eos # (Auto) Baso # (Auto) Abs Immat Gran (auto) Absolute Neuts (auto) Absolute Nucleated RBC Nucleated RBC % Sodium Potassium Chloride Carbon Dioxide Anion Gap BUN Creatinine Estim Creat Clear Calc Estimated GFR Glucose POC Capillary Glucose 125 H Calcium Total Bilirubin AST ALT Alkaline Phosphatase Total Protein Albumin Quality VTE Prophylaxis VTE prophylaxis: mechanical ordered
[2024-08-05 12:00] VITALS: BP 121/51; PULSE 64; PULSE 76; RESP 18; TEMP 37.1; O2SAT 100
[2024-08-05 12:20] LABS: Glucose Point of Care 159 mg/dl (65-105)
--- NOTE | 2024-08-05 16:15 | PM.DS ---
DS: Admitting Diagnosis Discharge Date 08/05/2024 Admitting Diagnosis Headache, Left sided numbness DS: Discharge Diagnosis Discharge Diagnosis (1) Cerebrovascular accident (CVA) with left hemiparesis: Status: Acute (2) Left leg weakness: Code(s): R29.898 - Other symptoms and signs involving the musculoskeletal system Status: Acute DS: Summary Hospital Course Reason for hospitalization: Copied from [facility] 08/02: 63 y/o F with PMH of hypertension, diabetes type 2, hyperlipidemia, and hypothyroidism presents here with stroke-like symptoms. The patient presents here from [facility] via EMS on 08/02 for further evaluation of stroke-like symptoms. She reports her last known well was at 0800 on 08/02. She reports onset of symptoms at 9:00 a.m. today (08/02). She reports she initially developed a frontal headache and blurred vision to her bilateral eyes. She reports she was drinking [employer] at the time and did not think her sugar was low at the time and her dexcom did not alert her to hypoglycemia, however she had not eaten at that point. She then proceeded to go to [facility], during the service she reports she developed left arm weakness and numbness which then spread to her face around 12:00 p.m.. Upon arrival to the emergency department, the provider reported decreased level of consciousness requiring minor stimulation, decreased sensation to the left side of her body including her (face, left arm, left leg), and a left lower extremity drift. Her initial glucose was 68, given D50 with repeat glucose at 156. Focal neurological symptoms did not improve with correction of glucose. She currently reports resolution of her headache and the blurred vision, numbness to the left arm and left face have also resolved. Continues to have weakness and numbness in the LLE. Denies changes in speech, dysphagia (different from her baseline). Last A1c 7.2% around 2 months ago. Initial VS at presentation: 98? F, HR 74, RR 14, 192/87, and 100% on RA. ED workup showed: No leukocytosis, no anemia, normal coags, no significant electrolyte derangements, creatinine 0.87 and GFR >60, glucose 161, initial troponin negative, UA showed a high specific gravity and trace glucose otherwise unremarkable, UDS negative, ETOH negative. Head CT showed no significant abnormalities. CXR showed clear lungs. Head/neck CTA showed no significant abnormality. Hospital Course: Left sided numbness: New deficits of blurred vision, left-sided paresthesias, left lower extremity weakness starting on 08/02 at 9:00 a.m. Last known well at 8:00 a.m. on 08/02. Neurology was consulted during admission and started plavix and aspirin daily. Daily atorvastatin 40mg. Recommended 30 day event monitor. She will follow up with neurology. - not candidate for thrombolytics due to low NIHSS, unclear diagnosis, patient preference - not candidate for thrombectomy, no LVO on CTA - CXR: clear lungs - CTA head/neck and head CT (08/02) unremarkable - Neurology consulted, appreciate recommendations. - brain MRI w/wo showed a normal aging brain. No acute intracranial process. - echo w/Bubble showed: Summary 1. Left ventricular chamber dimension is normal. 2. Left ventricular systolic function is normal, estimated at 65-70. 3. Right ventricular systolic function is normal. 4. Left atrial chamber dimension is mildly enlarged. 5. Intact interatrial septum visualized by color flow and agitated saline imaging. Negative bubble study. 6. There is mild tricuspid valve regurgitation. Left leg weakness: - see above Migraine headache: Headache resolved, had features of migraine Diabetes mellitus: initially hypoglycemic at 68 requiring D50, stable since correction. ED provided update at 4:00 p.m., patient hypoglycemic in the upper 40s. Plan to feed patient and correct with D50. Glucose checks exchange from ACHS to Q2 until stable. Patient's glucose continuing to downtrended so started D5LR at 75 mL/hr home medication: Held metformin, glipizide, glargine, Trulicity (NF), Lantus 30 during admission and treated with a sliding scale HgbA1C 5.6%. Blood sugars today 99-183. Patient completed liter of D5LR. Monitor blood sugars q4. --Did not resume lantus at discharge. --Continued glipizide, and metformin Hyperlipidemia: continued home Atorvastatin 40 mg daily Hypertension: chronic, currently 127/54. home medications: Losartan 100mg, amlodipine 10mg, metoprolol 50mg daily, hydrochlorothiazide 25mg --Reduced dose of losartan to 25mg and continued HCTZ 25mg --Resume home meds as tolerated Hypothyroidism: TSH 0.025, free T4 1.73, and Total T3 0.92. Decrease Levothyroxine 137 mcg PO daily. Hx Seizures Continue levetiracetam 1000mg BID Status at Discharge Cognitive/behavioral status at discharge: A&Ox4 Time Spent with Patient Time attestation: Total time spent providing and/or coordinating discharge services: 59 minutes Exam Narrative: General - Awake and alert. No acute distress Eyes - PERRLA, EOM intact ENT - No thrush, No erythema Neck - No noticeable or palpable swelling Lymph Nodes - No lymphadenopathy Cardiovascular - RRR no m/r/g, no JVD Lungs: Clear to auscultation, No wheezing, use of accessory muscles, no crackles or wheezes. Skin - Skin warm and dry, no wounds or rashes Abdomen - Normal bowel sounds, abdomen soft and nontender Extremities - No edema, cyanosis or clubbing Musculoskeletal - 5/5 strength, normal range of motion, no swollen or erythematous joints. Neurological ? Alert and oriented x 3, CN 2-12 grossly intact with the exception of mild flattening of the left nasolabial fold and mild sensory loss to the left limb compared to the right. Speech fluent Psych: Normal mood and affect DS: Data Data Completed and Pending Labs on day of discharge: Labs from last 24 hours 08/05/24 08/05/24 08/05/24 12:17 08:17 04:55 WBC 6.0 RBC 4.52 Hgb 13.1 Hct 39.7 MCV 87.8 MCH 29.0 MCHC 33.0 RDW 13.2 Plt Count 217 MPV 10.0 Immature Gran % (Auto) 0.3 Neut % (Auto) 64.5 Lymph % (Auto) 25.0 [place] % (Auto) 8.0 Eos % (Auto) 1.5 Baso % (Auto) 0.7 Lymph # (Auto) 1.50 [place] # (Auto) 0.5 Eos # (Auto) 0.1 Baso # (Auto) 0.0 Abs Immat Gran (auto) 0.02 Absolute Neuts (auto) 3.9 Absolute Nucleated RBC 0.000 Nucleated RBC % 0.0 Sodium 137 Potassium 4.0 Chloride 101 Carbon Dioxide 30 Anion Gap 6 BUN 16 Creatinine 0.94 Estim Creat Clear Calc 65 Estimated GFR 60 Glucose 146 H POC Capillary Glucose 159 H 125 H Calcium 9.5 Total Bilirubin 1.3 AST 28 ALT 30 Alkaline Phosphatase 68 Total Protein 6.7 Albumin 3.9 08/05/24 08/05/24 08/04/24 04:21 00:05 20:48 WBC RBC Hgb Hct MCV MCH MCHC RDW Plt Count MPV Immature Gran % (Auto) Neut % (Auto) Lymph % (Auto) [place] % (Auto) Eos % (Auto) Baso % (Auto) Lymph # (Auto) [place] # (Auto) Eos # (Auto) Baso # (Auto) Abs Immat Gran (auto) Absolute Neuts (auto) Absolute Nucleated RBC Nucleated RBC % Sodium Potassium Chloride Carbon Dioxide Anion Gap BUN Creatinine Estim Creat Clear Calc Estimated GFR Glucose POC Capillary Glucose 147 H 147 H 162 H Calcium Total Bilirubin AST ALT Alkaline Phosphatase Total Protein Albumin 08/04/24 16:45 WBC RBC Hgb Hct MCV MCH MCHC RDW Plt Count MPV Immature Gran % (Auto) Neut % (Auto) Lymph % (Auto) [place] % (Auto) Eos % (Auto) Baso % (Auto) Lymph # (Auto) [place] # (Auto) Eos # (Auto) Baso # (Auto) Abs Immat Gran (auto) Absolute Neuts (auto) Absolute Nucleated RBC Nucleated RBC % Sodium Potassium Chloride Carbon Dioxide Anion Gap BUN Creatinine Estim Creat Clear Calc Estimated GFR Glucose POC Capillary Glucose 127 H Calcium Total Bilirubin AST ALT Alkaline Phosphatase Total Protein Albumin Discharge Plan Discharge Attending physician on discharge: Payal Osei Consulting providers: Faheem Singleton; Aries Dao; Whitney Lara; Joe Adan; Perez Pascual; Liz Wolf Discharging Clinician: Payal Osei Anticipated Discharge Date/Time: 08/05/24 14:55 Patient Disposition: Home Activity: may shower Diet: diabetic Discharge Instructions: I spoke with Dr. Perez's office and they will arrange an outpatient event monitor (screening for arrhythmias). Follow up with your PCP in 1-2 weeks. Hold your Lantus for now. Ok to continue Trulicity and Metformin. Can add glipizide twice a day as needed for blood sugars over 200 if no low blood sugars under 100. Adjusted levothyroxine. You will need repeat labs in 6-8 weeks Follow up with Neurology in 2-4 weeks, Patient Instructions: Antibiotic Form, Clopidogrel (By mouth), Pain Management (GEN), Diabetic Hyperglycemia (GEN), Blood Thinners (DC), Diabetes and Nutrition (GEN) Patient Language: Romanian Stand Alone Forms: General Discharge Information, Work/School Release IP Follow-up/Referrals: Anoop Platt MD [Physician] - PHYSICIAN NOT ON STAFF,NONSTAFF [Primary Care Provider] - 2 Weeks (Follow up with your PCP in 1-2 weeks. Also follow up with Dr. Hooper, cardiology, ) Discharge Medications: New aspirin 81 mg Tablet,Delayed Release (Dr/Ec) 81 mg PO QAM Qty: 90 0RF clopidogrel 75 mg Tablet 75 mg PO QAM Qty: 30 0RF levothyroxine [Synthroid] 137 mcg Tablet 137 mcg PO DAILY@0630 Qty: 30 2RF acetaminophen 500 mg Tablet 1,000 mg PO Q6H PRN (Reason: Mild Pain (1-3) Or Fever) Qty: 30 0RF Continued hydrochlorothiazide 25 mg tablet 25 mg PO DAILY levetiracetam 1,000 mg tablet 1,000 mg PO BID pantoprazole 40 mg tablet,delayed release (DR/EC) 40 mg PO .AM gabapentin 300 mg capsule 300 mg PO HS Trulicity 0.75 mg/0.5 mL pen injector 1.5 mg SUBCUT WEEKLY b12 1,000 units tablet 1,000 unit PO DAILY Patient Comments: Patient states this is not a prescribed medication glipizide 10 mg tablet extended release 24hr 10 mg PO BID Qty: 30 0RF Rx Instructions: Take twice a day as needed for blood sugar over 200 only atorvastatin 40 mg Tablet 40 mg PO HS metformin 1,000 mg Tablet 1,000 mg PO BID losartan 25 mg Tablet 25 mg PO DAILY Patient Comments: PATIENT TAKES AT NIGHT Discontinued insulin glargine-yfgn 100 unit/mL (3 mL) insulin pen See Rx Instructions .ROUTE .COMPLEX Rx Instructions: 30 UNITS ONCE DAILY losartan 100 mg tablet 100 mg PO DAILY amlodipine 10 mg tablet 10 mg PO DAILY metoprolol succinate 50 mg tablet extended release 24 hr 50 mg PO DAILY levothyroxine 150 mcg Tablet 150 mcg PO DAILY Date of admission: 08/02/24 15:27 Primary Care Provider: PHYSICIAN NOT ON STAFF,NONSTAFF Admitting Provider: Chino Powers Attending physician on admission: Payal Osei Condition: Stable Quality VTE Prophylaxis VTE prophylaxis: pharmacologic ordered Hospitalist MIPS Heart Failure (Exclusion) Patient has history of Heart Transplant or Left Ventricular Assistive Device?: No IF YES, STOP HERE Heart Failure (Qualifier) Patient has current or prior documentation of LVEF less than or equal to 40%, or mod/servere depressed LVSF?: No IF NO, STOP HERE
--- NOTE | 2024-08-06 15:57 | PCCDE ---
DM educator couresy follow up call completed. Pt was concerned with fasting glucose >200 this am. - reviewed her DC Rx orders - Educated re: DM physiology and different factors influence glucose - Pt has HCP appt 08/11 (Joseline) - Enc'd to discuss OP DSMT/MNT opportunities with HCP. - Questions answered to her satisfaction.
== END 2024-08-05 16:53 | disposition home or self-care (01) | DRG 65 ==
LOC: ANHED 15:27 → ANH2MED 17:02
PROVIDERS: Nurse Practitioner Family; Student in an Organized Health Care Education/Training Program; Admitting Provider General Practice; Emergency Provider Emergency Medicine; Visit Provider Nurse Practitioner Acute Care
DX: I63.9 Cerebral infarction, unspecified (principal); G81.91 Hemiplegia, unspecified affecting right dominant side; E11.649 Type 2 diabetes mellitus with hypoglycemia without coma; R20.0 Anesthesia of skin; H53.8 Other visual disturbances; R20.2 Paresthesia of skin; G40.909 Epilepsy, unspecified, not intractable, without status epilepticus; G43.909 Migraine, unspecified, not intractable, without status migrainosus; E78.5 Hyperlipidemia, unspecified; E03.9 Hypothyroidism, unspecified; I10 Essential (primary) hypertension; G51.0 Bell's palsy; R29.703 NIHSS score 3; Z90.49 Acquired absence of other specified parts of digestive tract
CPT/HCPCS: 36415; 70450; 70496; 70498; 70553; 71045; 80053; 80061; 80307; 81003; 82077; 82948; 83036; 83735; 84439; 84443; 84480; 84484; 85025; 85610; 85730; 93005; 96375; 97161; 99285; A9270; A9577; C8929; J1200; J1815; J1885; J7121; Q9957; Q9967